=== PATIENT | male | born 1970 | race Two or more races ===

== ENCOUNTER 2019-10-14 12:34 | Inpatient (IN) | payer OTHER ==
[~2019-10-14] VITALS: Ht 172.7 cm; Wt 106.6 kg
--- NOTE | 2019-10-14 12:35 | NUR ---
[facility] PR[facility]-LIKE CHEST PAIN RADIATING TO SHOULDER AND LEG THAT STARTED THIS MORNING. TO ER BED 10. HOOKED TO MATERIALS TECHNICIAN, CHANGED TO HOSP GOWN, WARM BLANKET PROVIDED. DR HERRERA AT BEDSIDE
[2019-10-14 12:51] LABS: BASOPHILS % (AUTO) 0.4 % (0.0-2.0); EOSINOPHILS % (AUTO) 0.7 % (0.0-6.0); HEMATOCRIT 40 % (39-51); HEMOGLOBIN 13.3 g/dL (13.5-17.5); LYMPHOCYTES # (AUTO) 2.4 /CMM (0.8-4.8); LYMPHOCYTES % (AUTO) 26.7 % (20.0-44.0); MEAN CORPUSCULAR HGB CONC 34 g/dl (31.0-36.0); MEAN CORPUSCULAR VOLUME 89 fL (80-96); MONOCYTES # (AUTO) 0.6 /CMM (0.1-1.30); MONOCYTES % (AUTO) 6.3 % (2.0-12.0); NEUTROPHILS # (AUTO) 5.9 /CMM (1.8-8.9); NEUTROPHILS % (AUTO) 65.9 % (43.0-81.0); PLATELET COUNT (AUTO) 361 /CMM (150-450); RED BLOOD CELL COUNT(AUTO) 4.42 MIL/uL (4.5-6.0)
[2019-10-14 12:58] LABS: CALCIUM, SERUM 9.1 mg/dL (8.5-10.1); CREATININE 1.1 mg/dL (0.6-1.3); POTASSIUM 4.3 mmol/L (3.5-5.1)
[2019-10-14] MEDS ORDERED: IV NS 0.9% 500 ML BAG IV ONE (13:30)
--- NOTE | 2019-10-14 14:12 | NUR ---
PATIENT IN BED AWAKE, HOOKED TO MONITOR, VSS. WILL CONTINUE TO MONITOR ACCORDINGLY.
[2019-10-14] MEDS ORDERED: ASPIRIN 81 MG TAB.CHEW PO ONE (15:30)
[2019-10-14] MEDS ORDERED: ASPIRIN 81 MG TAB.CHEW ONE (15:38)
--- NOTE | 2019-10-14 16:14 | NUR ---
RECEIVED ADMITTING ORDER THROUGH PHONE FROM DEIRDRE GARAY MD.
--- NOTE | 2019-10-14 16:15 | NUR ---
CALLED NURSING SUP FOR TELE BED.
--- NOTE | 2019-10-14 17:14 | NUR ---
NURSING SUP GAVE [phone].
--- NOTE | 2019-10-14 17:24 | NUR ---
report given to Berny BERNABE for janine.
[2019-10-14 17:35] VITALS: BP 136/84
--- NOTE | 2019-10-14 18:00 | NUR ---
RN ADMITTING NOTES ADMITTED A 49 YEARS OLD, M, TO UNIT VIA GURNEY ACCOMPANIED BY 2 ER STAFF. ABLE TO MAKE NEEDS KNOWN. A/O X3. NO SIGNS OF DISTRESS NOTED AT THIS TIME. ORIENTED TO ROOM, STAFF AND UNIT. BREATHING EVEN AND UNLABORED. ON ROOM AIR, V/S TAKEN, STABLE AND RECORDED. REFUSED SKIN ASSESSMENT AND PICTURES, PER PATIENT HE DOES NOT HAVE ANY WOUNDS. PATIENT IV ACCESS ON RAC #18, PATENT AND INTACT. SAFETY MEASURES INITIATED, BED PLACED IN LOWEST LOCKED POSITION WITH SIDE RAILS UP X2. CALL LIGHT PLACED WITHIN EASY REACH OF PATIENT. ALL ORDERS MADE AND CARRIED OUT. WILL ENDORSE TO TELECOM MANAGER NURSE FOR JOEL.
[2019-10-14] MEDS ORDERED: DEXTROSE 50%-WATER 50 ML DISP.SYRIN IV PRN (18:30)
[2019-10-14] MEDS: DIVALPROEX SODIUM 500 MG TABLET.DR PO SCH (18:55)
[2019-10-14] MEDS: ZIPRASIDONE 20 MG CAPSULE PO SCH (18:55)
[2019-10-14] MEDS ORDERED: TRAZODONE 50 MG TABLET PO PRN (19:00)
[2019-10-14] MEDS ORDERED: ACETAMINOPHEN 325 MG TABLET PO PRN (19:00)
--- NOTE | 2019-10-14 19:00 | NUR ---
RECEIVED PATIENT IN BED ALERT AND ORIENTATED X4. REQUESTING SANDWITCH AND WATER. CALL LIGHT REVIEWED WITH HIM SKIN WARM AND DRY
[2019-10-14 20:00] VITALS: BP 139/88
[2019-10-14 20:11] VITALS: BP 139/88
[2019-10-14] MEDS: BENZTROPINE MESYLATE (1 MG) 1 MG TABLET PO SCH (20:31)
[2019-10-14] MEDS: ATORVASTATIN 10 MG TABLET PO SCH (22:08)
[2019-10-14] MEDS: BLOOD SUGAR DIAGNOSTIC 1 EACH STRIP IN SCH (22:10)
[2019-10-14] MEDS: INSULIN REGULAR, HUMAN 100 UNIT/ML 3 ML VIAL SQ PRN (22:14)
[2019-10-14] MEDS: LORAZEPAM 1 MG TABLET PO PRN (22:57)
[2019-10-15] VITALS: BP 121/45
[2019-10-15 03:15] LABS: BASOPHILS # (AUTO) 0.3 /CMM (0.0-0.2); EOSINOPHILS % (AUTO) 2.1 % (0.0-6.0); HEMATOCRIT 40 % (39-51); HEMOGLOBIN 13.3 g/dL (13.5-17.5); LYMPHOCYTES # (AUTO) 1.9 /CMM (0.8-4.8); LYMPHOCYTES % (AUTO) 21.9 % (20.0-44.0); MEAN CORPUSCULAR HGB CONC 33 g/dl (31.0-36.0); MEAN CORPUSCULAR VOLUME 89 fL (80-96); MONOCYTES # (AUTO) 0.8 /CMM (0.1-1.30); NEUTROPHILS # (AUTO) 5.7 /CMM (1.8-8.9); PLATELET COUNT (AUTO) 358 /CMM (150-450); RED BLOOD CELL COUNT(AUTO) 4.52 MIL/uL (4.5-6.0); WHITE BLOOD COUNT (AUTO) 8.9 K/uL (4.3-11.0)
[2019-10-15 03:20] LABS: CALCIUM, SERUM 8.7 mg/dL (8.5-10.1); CREATININE 0.9 mg/dL (0.6-1.3); POTASSIUM 4.7 mmol/L (3.5-5.1)
[2019-10-15 04:00] VITALS: BP 125/51
--- NOTE | 2019-10-15 04:54 | NUR ---
ENDING NOTES: SLEPT THRU THE NIGHT. USED URINAL AND TWICE UP TO THE BATHROOM STEADY ON HIS LEGS. WITH AMBULATION TO THE BATHROOM NO NOTED SOB OR C/O PAIN. TROPS DONE Q6 HOURS 9PM 0.058 @3AM 0.058 . KEPT NPO AFTER MIDNIGHT TO BE EVAL IN THE AM ON THE MONITOR HE READS NSR
[2019-10-15] MEDS: BLOOD SUGAR DIAGNOSTIC 1 EACH STRIP IN SCH ×4 (05:29→21:27)
--- NOTE | 2019-10-15 07:35 | NUR ---
CORPORATE LEGAL ASSISTANT OPENING NOTES RECEIVED PT IN BED, AWAKE, A/O X3-4. PT TOLERATING RA, WITH NO ACUTE RESPIRATORY DISTRESS NOTED. ON TELEMONITORING SR HR 84. PT DENIES ANY PAIN OR DISCOMFORT AT THIS TIME. PIV TO RAC G18, FLUSHED WITH NS, INTACT AND OPERATIONAL. PT KEPT COMFORTABLE AT THIS TIME. CALL LIGHT KEPT WITHIN REACH. PT'S BED IN LOWEST, LOCKED POSITION WITH SRX3. HOB ELEVATED. WILL CONTINUE PLAN OF CARE.
--- NOTE | 2019-10-15 07:45 | NUR ---
MS RN NOTES PT SEEN AND EVALUATED BY PREMIUM REPRESENTATIVE/DR. FLORES. ORDER PLACED AND CARRIED OUT. WILL CONTINUE TO MONITOR.
[2019-10-15 08:00] VITALS: BP 115/89
[2019-10-15] MEDS: ZIPRASIDONE 20 MG CAPSULE PO SCH ×2 (08:39→16:48)
[2019-10-15] MEDS: BENZTROPINE MESYLATE (1 MG) 1 MG TABLET PO SCH ×2 (08:39→16:48)
[2019-10-15] MEDS: LISINOPRIL (5MG) 5 MG TABLET PO SCH (08:39)
[2019-10-15] MEDS: METFORMIN 500 MG TABLET PO SCH ×2 (08:40→16:48)
[2019-10-15] MEDS: ASPIRIN 81 MG TAB.CHEW PO SCH (08:40)
[2019-10-15] MEDS: DIVALPROEX SODIUM 500 MG TABLET.DR PO SCH ×2 (08:42→16:48)
--- NOTE | 2019-10-15 11:30 | NUR ---
MS RN NOTES PT PREFERS TO HAVE RAC G18 PIV REPLCED WITH A NEW ONE DUE TO LEAK. RN ASSESSED PIV RAC, FLUSHED WITH NS, INTACT AND OPERATIONAL. NEWLY INSERTED PIV TO LFA G20, FLUSHED WITH NS, INTACT AND OPERATIONAL. WILL CONTINUE TO MONITOR.
--- NOTE | 2019-10-15 11:30 | NUR ---
MS RN NOTES NO MED RECON DONE. PER PT, REVIEWED ALL INPATIENT MEDS WITH PT AND STATED THAT'S ALL HE TAKES. NOTIFIED PHARMACY.
--- NOTE | 2019-10-15 12:28 | NUR ---
MS RN NOTES PT PREFERS TO HAVE PIV LFA G20, REMOVED. CHARGE NURSE/PAULINE AWARE WELL AND AGREED.
[2019-10-15 16:00] VITALS: BP 118/70
--- NOTE | 2019-10-15 18:34 | NUR ---
MS RN CLOSING NOTES PT REMAINS IN BED, AWAKE, A/O X3-4. PT TOLERATING RA, WITH NO ACUTE RESPIRATORY DISTRESS NOTED. PT DENIES ANY PAIN OR DISCOMFORT AT THIS TIME. NO IV ACCESS NOTED, PER PT'S REQUEST. MADE AWARE. PT KEPT COMFORTABLE AT THIS TIME. ALL NEEDS AND CARE ATTENDED AND PROVIDED. CALL LIGHT KEPT WITHIN REACH. PT'S BED IN LOWEST, LOCKED POSITION WITH SRX3. HOB ELEVATED. WILL ENDORSE TO INCOMING NIGHT NURSE FOR JOEL.
--- NOTE | 2019-10-15 19:30 | NUR ---
MS RN OPENING NOTES RECEIVED PATIENT FROM MORNING SHIFT, ALERT AND ORIENTED X 3. VERBALLY RESPONSIVE AND ABLE TO FOLLOW DIRECTIONS. BREATHING REGULAR AND UNLABORED ON ROOM AIR. NO IV ACCESS, REFUSED IV REINSERTION. RISK AND BENEFITS EXPLAINED. DENIES SUICIDAL/HOMICIDAL IDEATION. COMPLAINED OF LEFT SHOULDER PAIN, WHEN ASKED HOW PAINFUL IT IS HE REPLIED "I DON'T KNOW". NON-PHARMACOLOGICAL INTERVENTIONS PROVIDED. BED LOW AND LOCKED ON SEMI FOWLERS POSITION. CALL LIGHT IN REACH. WILL CONTINUE TO MONITOR.
[2019-10-15 20:00] VITALS: BP 138/80
[2019-10-15 20:28] VITALS: BP 138/80
[2019-10-15] MEDS: ATORVASTATIN 10 MG TABLET PO SCH (21:27)
--- NOTE | 2019-10-15 22:00 | NUR ---
MS RN NOTES BS 103mg/dl, NO INSULIN COVERAGE NEEDED. SNACKS PROVIDED. WILL CONTINUE TO MONITOR.
[2019-10-15] MEDS: LORAZEPAM 1 MG TABLET PO PRN (22:40)
--- NOTE | 2019-10-15 22:40 | NUR ---
MS RN NOTES ANXIETY VERBALIZED, ATIVAN 1MG GIVEN BY MOUTH. NON-PHARMACOLOGICAL INTERVENTIONS PROVIDED. WILL CONTINUE TO MONITOR.
--- NOTE | 2019-10-16 06:15 | NUR ---
MS RN CLOSING NOTES PATIENT IN BED ALERT AND ORIENTED X 3. AFEBRILE WITH NO S/S OF DISTRESS OBSERVED. NO IV ACCESS, REFUSED IV REINSERTION. RISK AND BENEFITS EXPLAINED 3X. NO COMPLAINTS OF PAIN/DISCOMFORT REPORTED AT THIS TIME. BED LOW AND LOCKED ON SEMI FOWLERS POSITION. CALL LIGHT IN REACH. WILL ENDORSE TO MORNING SHIFT FOR JOEL.
[2019-10-16] MEDS: INSULIN REGULAR, HUMAN 100 UNIT/ML 3 ML VIAL SQ PRN (06:37)
[2019-10-16] MEDS: BLOOD SUGAR DIAGNOSTIC 1 EACH STRIP IN SCH ×2 (06:37→11:39)
[2019-10-16 08:00] VITALS: BP 142/100
--- NOTE | 2019-10-16 08:00 | NUR ---
m/s adjunct communications faculty member: initial assessment received pt in bed awake, a/ox2-3. pt is selective in answering questions. reality orientation provided prn. instructed to call for assistance. will continue to monitor.
[2019-10-16] MEDS: METFORMIN 500 MG TABLET PO SCH ×2 (08:36→16:30)
[2019-10-16] MEDS: ZIPRASIDONE 20 MG CAPSULE PO SCH ×2 (08:36→16:30)
[2019-10-16] MEDS: BENZTROPINE MESYLATE (1 MG) 1 MG TABLET PO SCH ×2 (08:36→16:30)
[2019-10-16] MEDS: DIVALPROEX SODIUM 500 MG TABLET.DR PO SCH ×2 (08:37→16:30)
[2019-10-16] MEDS: ASPIRIN 81 MG TAB.CHEW PO SCH (08:37)
[2019-10-16] MEDS: LISINOPRIL (5MG) 5 MG TABLET PO SCH (08:37)
--- NOTE | 2019-10-16 10:00 | NUR ---
m/s recreation therapy aide: notes up and about in unit. staff following closely. no c/o pain or any discomfort. will continue to monitor.
--- NOTE | 2019-10-16 11:00 | NUR ---
m/s videographer: notes pt acting out, going to elevator. instructed pt to go back to his room, pt still insisting of leaving. awaiting for dr. powell to see pt. no further workup from user support analyst. security called and assisted pt back to his room.
--- NOTE | 2019-10-16 11:30 | NUR ---
m/s video game maker: notes pt came out once more and wants to leave. dr. powell here and aware. security once more assisted pt back to his room. will continue to monitor.
[2019-10-16] MEDS ORDERED: ZIPR20CA2 PO (11:42)
[2019-10-16] MEDS ORDERED: DIVA500T2 PO (11:42)
[2019-10-16] MEDS ORDERED: BENZ1TAB7 PO (11:42)
[2019-10-16] MEDS ORDERED: METF-440 PO (11:42)
[2019-10-16] MEDS ORDERED: ATOR10TA PO (11:42)
[2019-10-16] MEDS ORDERED: ASPI-1169 PO (11:42)
[2019-10-16] MEDS ORDERED: TRAZ-252 PO (11:42)
[2019-10-16] MEDS ORDERED: ACET325T53 PO (11:42)
[2019-10-16] MEDS ORDERED: LISI-607 PO (11:42)
--- NOTE | 2019-10-16 11:50 | NUR ---
m/s municipal clerk: notes received order from dr. powell to discharge pt back to [facility] (end) making arrangement. pt made aware.
--- NOTE | 2019-10-16 12:54 | NUR ---
Metal Fence Erector, Otilia, and Charge Nurse on 3rd floor, [place], asked the SW to transfer the pt to [facility]. KENTRELL contacted Jacobo ([phone]) from [facility] and faxed a clinical to the fax number: [phone]. He stated that the pt will be placed in Rm 214A and will be followed by Dr. Marin and Dr. Leyva.
--- NOTE | 2019-10-16 13:30 | NUR ---
m/s head field hockey coach: notes pt accepted at [facility]. pt made aware.
--- NOTE | 2019-10-16 14:00 | NUR ---
m/s commercial front load operator: notes called for report, spoke to jg ([facility]) and informed me that he hasn't been accepted here and have sw call out intake. cristian (chiki.) made aware and will f/u.
--- NOTE | 2019-10-16 14:30 | NUR ---
m/s leather seasoner: notes krystle (s.w) called me and informed me that pt has been accepted, but pt needs to go to e.r. there first prior to going to floor. ian (anuradha) making arrangement for transportation.
--- NOTE | 2019-10-16 15:00 | NUR ---
m/s marketing communications coordinator: notes [facility] notified, spoke to alessio (rn) and report given for continuity of care. eta in 30mins. pt made aware.
--- NOTE | 2019-10-16 15:16 | NUR ---
Pt will be discharged to [facility]. Pt will be admitted through their ER so that they can conduct a COVID test for the pt. SW called the pts sister, Genie ([phone]), and left a message stating that the pt was transferred there on a voluntary hold.
--- NOTE | 2019-10-16 15:30 | NUR ---
m/s dowel pin worker: notes pt unable to sign discharge papers due to psychosis or cognitive impairment. 2 licensed staff signed and copy to be provided to [facility].
[2019-10-16 16:00] VITALS: BP 145/87
--- NOTE | 2019-10-16 16:02 | NUR ---
m/s tool crib manager: notes ambulance called and informed that they are running an hour late, pt made aware.
--- NOTE | 2019-10-16 17:19 | NUR ---
m/s senior quality control inspector: notes pt is getting irritated, f/u made to ian re: ambulance pick pack worker. informed pt that cm is following up and will call them.
--- NOTE | 2019-10-16 17:30 | NUR ---
m/s end touching machine operator: notes [facility] ambulance here and report given to one of the crew.
--- NOTE | 2019-10-16 17:35 | NUR ---
m/s motor vehicle representative: discharged discharge to [facility] via ambulance accompanied by 2 crew in stable condition.
== END 2019-10-16 17:35 | DRG 880 ==
LOC: ER 12:41 → TELE 17:19 → MED 10-15 09:59
PROVIDERS: ADMIT Internal Medicine Nephrology; ATTEND Internal Medicine Nephrology
DX: F41.9 Anxiety disorder, unspecified (principal); E11.9 Type 2 diabetes mellitus without complications; F32.9 Major depressive disorder, single episode, unspecified; F20.9 Schizophrenia, unspecified
CPT/HCPCS: 36415; 71045-TC; 80048-TC; 80061-TC; 82962-TC; 84484-TC; 85025-TC; 87081-TC; 93307-TC; G0378; J1815; J7040

== ENCOUNTER 2019-11-09 17:42 | Inpatient (IN) | payer OTHER ==
[~2019-11-09] VITALS: Ht 172.7 cm; Wt 104.8 kg
[~2019-11-09 17:42] MED LIST: ACET325T53 PO; ASPI-1169 PO; ATOR10TA PO; BENZ1TAB7 PO; DIVA500T2 PO; LISI-607 PO; METF-440 PO; TRAZ-252 PO; ZIPR20CA2 PO
[2019-11-09] MEDS ORDERED: IV NS 0.9% 1,000 ML BAG IV ONE ×2 (18:00)
--- NOTE | 2019-11-09 18:00 | NUR ---
REBEKAH RA 860 "recent dc from [facility] Was being admitted to [facility] c/o dizzy." pt states "they were taking so long to process my papers" patient a/ox4, breathing even and unlabored, c/o chest pain, no distress noted, attached to the financial services technician.
--- NOTE | 2019-11-09 18:01 | NUR ---
PT ALSO STATED THAT HE IS HAVING AN ABDOMINAL PAIN. DENIES NAUSE AND VOMIMITING.
[2019-11-09 18:21] LABS: BASOPHILS # (AUTO) 0.1 /CMM (0.0-0.2); BASOPHILS % (AUTO) 1.1 % (0.0-2.0); EOSINOPHILS % (AUTO) 0.6 % (0.0-6.0); HEMATOCRIT 37 % (39-51); HEMOGLOBIN 12.7 g/dL (13.5-17.5); LYMPHOCYTES # (AUTO) 2.8 /CMM (0.8-4.8); LYMPHOCYTES % (AUTO) 30.6 % (20.0-44.0); MEAN CORPUSCULAR HGB CONC 34 g/dl (31.0-36.0); MEAN CORPUSCULAR VOLUME 88 fL (80-96); MONOCYTES # (AUTO) 0.7 /CMM (0.1-1.30); MONOCYTES % (AUTO) 8.1 % (2.0-12.0); NEUTROPHILS # (AUTO) 5.5 /CMM (1.8-8.9); NEUTROPHILS % (AUTO) 59.6 % (43.0-81.0); PLATELET COUNT (AUTO) 352 /CMM (150-450); RED BLOOD CELL COUNT(AUTO) 4.26 MIL/uL (4.5-6.0); WHITE BLOOD COUNT (AUTO) 9.3 K/uL (4.3-11.0)
[2019-11-09 18:31] LABS: CALCIUM, SERUM 8.6 mg/dL (8.5-10.1); CREATININE 0.8 mg/dL (0.6-1.3); POTASSIUM 3.9 mmol/L (3.5-5.1)
[2019-11-09 18:36] LABS: ALBUMIN 3.4 g/dL (3.4-5.0); BILIRUBIN,DIRECT 0.1 mg/dL (0.0-0.2); BILIRUBIN,TOTAL 0.5 mg/dL (0.2-1.0); TOTAL PROTEIN, SERUM 6.9 g/dL (6.4-8.2)
[2019-11-09] MEDS ORDERED: ASPIRIN 81 MG TAB.CHEW PO ONE (19:00)
[2019-11-09] MEDS ORDERED: ASPIRIN 81 MG TAB.CHEW ONE (19:01)
--- NOTE | 2019-11-09 19:20 | NUR ---
PT VERBALIZED THAT HE IS HAVING A SHARP THROBBING L SIDED CHEST PAIN NON RADIDATING. MD MADE AWARE
[2019-11-09] MEDS ORDERED: MAGNESIUM HYDROXIDE 30 ML UDC PO PRN (20:30)
[2019-11-09] MEDS ORDERED: MAG HYDROX/AL HYDROX/SIMETH 30 ML UDC PO PRN (20:30)
[2019-11-09] MEDS ORDERED: NITROGLYCERIN 0.4 MG/TAB BOTTLE SL PRN (20:30)
[2019-11-09] MEDS ORDERED: HYDROCODONE/APAP 5/325MG 1 EACH TABLET PO PRN (20:30)
[2019-11-09] MEDS ORDERED: MORPHINE SULFATE INJ 2 MG/ML DISP.SYRIN IV PRN (20:30)
[2019-11-09] MEDS ORDERED: TEMAZEPAM 15 MG CAPSULE PO PRN (20:30)
[2019-11-09] MEDS ORDERED: TRAZODONE 50 MG TABLET PO PRN (20:30)
--- NOTE | 2019-11-09 20:33 | NUR ---
REPORT GIVEN TO FLORECITA TENA FOR JOEL.
[2019-11-09 21:15] VITALS: BP 125/81
--- NOTE | 2019-11-09 21:15 | NUR ---
INDUSTRIAL RELATIONS WORKER NOTES PATIENT ARRIVED ON FLOOR AT 2114. PT ABLE TO AMBULATE TO BED. ALERT AND ORIENTED X4. BREATHING EVEN AND UNLABORED ON ROOM AIR. SHOWS NO SIGNS OF ACUTE RESPIRATORY DISTRESS NO ACUTE PAIN. IV ON LAC 20G RUNNING NS AT 75ML/HR. SHOWS NO SIGNS OF INFILTRATION, NO REDNESS. TELE MONITOR ON SR 80HR. BELONGINGS CHECKLIST COMPLETE AND SKIN ASSESSMENT DONE. ORIENTED TO ROOM AND UNIT. SAFETY PRECAUTIONS IN PLACE. BED IN LOWEST POSITION, LOCKED, AND CALL LIGHT KEPT WITHIN REACH. WILL CONTINUE TO MONITOR.
--- NOTE | 2019-11-09 21:18 | NUR ---
PT TRANSPORTED TO UNIT ON [place] WITH EMT AND RN AT BEDSIDE W/ ACLS PROTOCOL. NAD NOTED DURING TRANSPORT. PT AMBULATED FROM GURNEY TO BED W/ ASSIST ON STEADY GAIT.
[2019-11-09 21:30] VITALS: BP 125/81
[2019-11-09] MEDS: ACETAMINOPHEN 325 MG TABLET PO PRN (21:50)
[2019-11-09] MEDS: ATORVASTATIN 10 MG TABLET PO SCH (21:50)
--- NOTE | 2019-11-09 21:50 | NUR ---
UX DEVELOPER NOTES PATIENT COMPLAINING OF PAIN. PT REQUESTED TYLENOL. GIVEN TYLENOL PRN AT 2150
[2019-11-09] MEDS: BENZTROPINE MESYLATE (1 MG) 1 MG TABLET PO SCH (21:54)
[2019-11-09] MEDS: DIVALPROEX SODIUM 500 MG TABLET.DR PO SCH (21:54)
[2019-11-09] MEDS: ZIPRASIDONE 20 MG CAPSULE PO SCH (21:54)
--- NOTE | 2019-11-09 22:09 | NUR ---
VOCATIONAL TRAINING INSTRUCTOR NOTES PATIENT COMPLAINING OF CHEST PAIN 09/20. GIVEN PRN 1 TAB NITRO 2209. WILL CONTINUE TO MONITOR.
[2019-11-09] MEDS: IV NS 0.9% 1,000 ML IV PRN (22:50)
[2019-11-09] MEDS ORDERED: LORAZEPAM INJ 2 MG/ML VIAL IV PRN (23:00)
--- NOTE | 2019-11-09 23:20 | NUR ---
PAPER AND PULP MILL WORKER NOTES PATIENT REQUESTED ATIVAN FOR ANXIETY. GIVEN ONCE TIME DOSE OF PRN ATIVAN AT 2320. WILL CONTINUE TO MONITOR.
[2019-11-10 04:00] VITALS: BP 103/64
--- NOTE | 2019-11-10 06:40 | NUR ---
TAMPING MACHINE OPERATOR NOTES PATIENT ASLEEP, ALERT AND ORIENTED X4. BREATHING EVEN AND UNLABORED ON ROOM AIR. SHOWS NO SIGNS OF ACUTE RESPIRATORY DISTRESS NO ACUTE PAIN. IV ON LAC 20G RUNNING NS AT 75ML/HR. SHOWS NO SIGNS OF INFILTRATION, NO REDNESS. TELE MONITOR ON SR 80HR. ALL DUE MEDIATIONS GIVEN. SAFETY PRECAUTIONS IN PLACE. BED IN LOWEST POSITION, LOCKED, AND CALL LIGHT KEPT WITHIN REACH. WILL ENDORSE TO ONCOMING NURSE.
[2019-11-10 07:14] LABS: BASOPHILS % (AUTO) 0.4 % (0.0-2.0); EOSINOPHILS % (AUTO) 1.2 % (0.0-6.0); HEMATOCRIT 39 % (39-51); HEMOGLOBIN 13.2 g/dL (13.5-17.5); LYMPHOCYTES # (AUTO) 2.5 /CMM (0.8-4.8); LYMPHOCYTES % (AUTO) 41.2 % (20.0-44.0); MEAN CORPUSCULAR HGB CONC 34 g/dl (31.0-36.0); MEAN CORPUSCULAR VOLUME 89 fL (80-96); MONOCYTES # (AUTO) 0.5 /CMM (0.1-1.30); NEUTROPHILS # (AUTO) 2.9 /CMM (1.8-8.9); NEUTROPHILS % (AUTO) 48.2 % (43.0-81.0); PLATELET COUNT (AUTO) 349 /CMM (150-450); RED BLOOD CELL COUNT(AUTO) 4.41 MIL/uL (4.5-6.0); WHITE BLOOD COUNT (AUTO) 6.1 K/uL (4.3-11.0)
[2019-11-10 07:30] LABS: CALCIUM, SERUM 8.2 mg/dL (8.5-10.1); CREATININE 0.7 mg/dL (0.6-1.3); PHOSPHORUS 4.6 mg/dL (2.5-4.9); POTASSIUM 4.6 mmol/L (3.5-5.1)
--- NOTE | 2019-11-10 07:42 | NUR ---
MICROFICHE CAMERA OPERATOR OPENING NOTE PATIENT IN BED RESTING COMFORTABLY. PATIENT IN NO ACUTE DISTRESS. NO SOB NOTED. PATIENT BREATHING IS EVEN AND UNLABORED. PATIENT ON CARDIAC MONITORING READING SINUS RHYTHM HR 65. SAFETY PRECAUTIONS IN PLACE. PATIENT BED IS LOCKED AND IN LOWEST POSITION. CALL LIGHT WITHIN REACH. WILL CONTINUE TO MONITOR.
[2019-11-10 08:00] VITALS: BP 107/55
[2019-11-10] MEDS: LISINOPRIL (5MG) 5 MG TABLET PO SCH (09:00)
[2019-11-10] MEDS ORDERED: DIVALPROEX SODIUM 500 MG TABLET.DR PO SCH (09:00)
[2019-11-10] MEDS ORDERED: BENZTROPINE MESYLATE (1 MG) 1 MG TABLET PO SCH (09:00)
[2019-11-10] MEDS ORDERED: ZIPRASIDONE 20 MG CAPSULE PO SCH (09:00)
[2019-11-10] MEDS ORDERED: ASPIRIN 325 MG TABLET PO SCH (09:00)
[2019-11-10] MEDS: METFORMIN 500 MG TABLET PO SCH ×2 (09:05→16:52)
[2019-11-10] MEDS: BENZTROPINE MESYLATE (1 MG) 1 MG TABLET PO SCH ×2 (09:06→16:55)
[2019-11-10] MEDS: DIVALPROEX SODIUM 500 MG TABLET.DR PO SCH ×2 (09:06→16:55)
[2019-11-10] MEDS: ZIPRASIDONE 20 MG CAPSULE PO SCH ×2 (09:06→16:55)
[2019-11-10] MEDS: METOPROLOL TARTRATE 50 MG TABLET PO SCH ×2 (09:47→21:07)
[2019-11-10] MEDS: ONDANSETRON HCL/PF 4 MG/2 ML VIAL IVP PRN (10:20)
--- NOTE | 2019-11-10 12:45 | NUR ---
MS RN NOTE SPOKE WITH DR. LILLY AND PATIENTS HISTORY OF DIABETES. PER MD ORDER FOR MILD SLIDING SCALE.
[2019-11-10] MEDS ORDERED: INSULIN REGULAR, HUMAN 100 UNIT/ML 3 ML VIAL SQ PRN (13:00)
[2019-11-10] MEDS ORDERED: DEXTROSE 50%-WATER 50 ML DISP.SYRIN IV PRN (13:00)
[2019-11-10] MEDS: MIRTAZAPINE 15 MG TABLET PO SCH (13:43)
[2019-11-10] MEDS ORDERED: METOPROLOL TARTRATE INJ 5 MG/5 ML AMPUL ONE ×2 (14:28→14:34)
[2019-11-10] MEDS ORDERED: IOHEXOL-350 100 ML VIAL IV ONE ×2 (14:34→14:48)
[2019-11-10] MEDS ORDERED: CT SWABBABLE VALVE TRANS SET 1 EA INFUS.SET MC ONE (14:48)
[2019-11-10] MEDS ORDERED: IV NS 0.9% 250 ML IV ONE (14:48)
[2019-11-10] MEDS ORDERED: NITROGLYCERIN 0.4 MG/TAB BOTTLE SL PRN (15:00)
[2019-11-10] MEDS ORDERED: METOPROLOL TARTRATE INJ 5 MG/5 ML AMPUL IVP ONE (15:00)
[2019-11-10] MEDS ORDERED: IV NS 0.9% 500 ML IV ONE (15:00)
--- NOTE | 2019-11-10 15:30 | NUR ---
MS RN NOTE PATIENT BACK FROM [facility]. PATIENT IN NO ACUTE DISTRESS. HOLD METFORMIN FOR 48 HOURS DUE TO [facility] PERFORMED.
[2019-11-10 16:00] VITALS: BP 124/74
--- NOTE | 2019-11-10 16:52 | NUR ---
MS RN NOTE HELD 1700 DOSE METFORMIN DUE TO [facility] PERFORMED TODAY.
[2019-11-10] MEDS: BLOOD SUGAR DIAGNOSTIC 1 EACH STRIP IN SCH ×2 (16:55→21:07)
--- NOTE | 2019-11-10 16:57 | NUR ---
MS RN NOTE PATIENT BLOOD SUGAR IS 125. NO INSULIN NEEDED PER PROTOCOL.
--- NOTE | 2019-11-10 18:44 | NUR ---
MS RN CLOSING NOTE PATIENT IN BED RESTING COMFORTABLY. PATIENT IN NO ACUTE DISTRESS. NO SOB NOTED. PATIENT BREATHING IS EVEN AND UNLABORED. PATIENT STATES NO PAIN AT THIS TIME. NEEDS AND CONCERNS ADDRESSED. PATIENT KEPT CLEAN, DRY AND COMFORTABLE THROUGHOUT SHIFT. SAFETY PRECAUTIONS IN PLACE. PATIENT BED IS LOCKED AND IN LOWEST POSITION. CALL LIGHT WITHIN REACH. WILL ENDORSE CARE TO PM SHIFT FOR JOEL.
[2019-11-10 20:00] VITALS: BP 110/77
[2019-11-10] MEDS: ATORVASTATIN 10 MG TABLET PO SCH (21:07)
[2019-11-10] MEDS ORDERED: MIRTAZAPINE 15 MG TABLET PO SCH (22:00)
[2019-11-11] MEDS: BLOOD SUGAR DIAGNOSTIC 1 EACH STRIP IN SCH ×4 (06:36→21:20)
[2019-11-11 07:26] LABS: BASOPHILS # (AUTO) 0.1 /CMM (0.0-0.2); BASOPHILS % (AUTO) 0.8 % (0.0-2.0); EOSINOPHILS % (AUTO) 0.5 % (0.0-6.0); HEMATOCRIT 40 % (39-51); HEMOGLOBIN 13.2 g/dL (13.5-17.5); LYMPHOCYTES # (AUTO) 2.4 /CMM (0.8-4.8); LYMPHOCYTES % (AUTO) 31.2 % (20.0-44.0); MEAN CORPUSCULAR HGB CONC 33 g/dl (31.0-36.0); MEAN CORPUSCULAR VOLUME 90 fL (80-96); MONOCYTES # (AUTO) 0.7 /CMM (0.1-1.30); MONOCYTES % (AUTO) 9.7 % (2.0-12.0); NEUTROPHILS # (AUTO) 4.4 /CMM (1.8-8.9); NEUTROPHILS % (AUTO) 57.8 % (43.0-81.0); PLATELET COUNT (AUTO) 164 /CMM (150-450); WHITE BLOOD COUNT (AUTO) 7.6 K/uL (4.3-11.0)
--- NOTE | 2019-11-11 07:39 | NUR ---
MS RN OPENING NOTE PATIENT IN BED RESTING COMFORTABLY. PATIENT IN NO ACUTE DISTRESS. NO SOB NOTED. PATIENT BREATHING IS EVEN AND UNLABORED. SAFETY PRECAUTIONS IN PLACE. PATIENT BED IS LOCKED AND IN LOWEST POSITION. CALL LIGHT WITHIN REACH. WILL CONTINUE TO MONITOR.
[2019-11-11 07:44] LABS: CALCIUM, SERUM 8.5 mg/dL (8.5-10.1); CREATININE 0.8 mg/dL (0.6-1.3); MAGNESIUM 2.2 mg/dL (1.8-2.4); PHOSPHORUS 4.3 mg/dL (2.5-4.9); POTASSIUM 4.9 mmol/L (3.5-5.1)
[2019-11-11] MEDS: ACETAMINOPHEN 325 MG TABLET PO PRN ×2 (07:53→17:14)
--- NOTE | 2019-11-11 07:57 | NUR ---
MS RN NOTE PATIENT STATED TOOTHACHE PAIN 5/10. PATIENT REQUESTED TYLENOL. TYLENOL PRN ORDERED GIVEN.
[2019-11-11 08:00] VITALS: BP 133/85
[2019-11-11] MEDS: ONDANSETRON HCL/PF 4 MG/2 ML VIAL IVP PRN (08:34)
[2019-11-11] MEDS: BENZTROPINE MESYLATE (1 MG) 1 MG TABLET PO SCH ×2 (08:34→17:14)
[2019-11-11] MEDS: DIVALPROEX SODIUM 500 MG TABLET.DR PO SCH ×2 (08:34→17:14)
[2019-11-11] MEDS: ZIPRASIDONE 20 MG CAPSULE PO SCH ×2 (08:34→17:14)
[2019-11-11] MEDS: LISINOPRIL (5MG) 5 MG TABLET PO SCH (08:35)
[2019-11-11] MEDS: METFORMIN 500 MG TABLET PO SCH ×2 (08:35→17:00)
--- NOTE | 2019-11-11 08:36 | NUR ---
MS RN NOTE HELD METFORMIN DUE TO [facility] PERFORMED YESTERDAY.
--- NOTE | 2019-11-11 11:23 | NUR ---
MS RN NOTE PATIENT BLOOD SUGAR IS 79. NO INSULIN COVERAGE NEEDED PER PROTOCOL.
[2019-11-11] MEDS: IV NS 0.9% 1,000 ML IV PRN (14:34)
[2019-11-11 16:00] VITALS: BP 137/81
--- NOTE | 2019-11-11 16:53 | NUR ---
MS RN NOTE PATIENT BLOOD SUGAR IS 91. NO INSULIN COVERAGE GIVEN PER PROTOCOL.
--- NOTE | 2019-11-11 17:12 | NUR ---
MS RN NOTE HELD METFORMIN DUE TO [facility] PERFORMED YESTERDAY.
--- NOTE | 2019-11-11 17:20 | NUR ---
MS RN NOTE PATIENT STATED TOOTHACHE PAIN 5/10. PATIENT REQUESTED TYLENOL. TYLENOL PRN ORDERED GIVEN.
--- NOTE | 2019-11-11 18:34 | NUR ---
MS RN CLOSING NOTE PATIENT IN BED RESTING COMFORTABLY. PATIENT IN NO ACUTE DISTRESS. NO SOB NOTED. PATIENT BREATHING IS EVEN AND UNLABORED. PATIENT STATES NO PAIN AT THIS TIME. NEEDS AND CONCERNS ADDRESSED. PATIENT KEPT CLEAN, DRY AND COMFORTABLE THROUGHOUT SHIFT. DC ORDER IS PLACED, BUT PENDING PLACEMENT ACCEPTANCE TO PSYCHIATRIC FACILITY. MD AWARE AND CHARGE NURSE BRAYAN MADE AWARE. SAFETY PRECAUTIONS IN PLACE. PATIENT BED IS LOCKED AND IN LOWEST POSITION. CALL LIGHT WITHIN REACH. WILL ENDORSE CARE TO PM SHIFT FOR JOEL.
--- NOTE | 2019-11-11 19:30 | NUR ---
MS RN OPENING NOTE RECEIVED PATIENT IN BED. A/OX4, TOLERATING ROOM AIR. RESPIRATIONS ARE EVEN AND UNLABORED. NO S/S SOB NOTED. NO C/O PAIN AT THIS TIME. IN NO APPARENT DISTRESS. IV ACCESS IN LAC#20 RUNNING NS@75ML/HR. BED IS LOW AND LOCKED, HOB ELEVATED IN SEMI FOWLERS, SIDE RIALS UP X2. CALL LIGHT WITHIN REACH,.W ILL CONTINUE TO MONITOR.
[2019-11-11 20:00] VITALS: BP 117/71
[2019-11-11] MEDS: MIRTAZAPINE 15 MG TABLET PO SCH (21:19)
[2019-11-12] MEDS: IV NS 0.9% 1,000 ML IV PRN (06:23)
[2019-11-12] MEDS: BLOOD SUGAR DIAGNOSTIC 1 EACH STRIP IN SCH ×2 (06:23→11:55)
--- NOTE | 2019-11-12 06:55 | NUR ---
MS RN CLOSING NOTE PATIENT IN BED. A/OX4. REMAINS TOLERATING ROOM AIR. RESPIRATIONS ARE EVEN AND UNLABORED. NO SOB NOTED. NO C/O PAIN T/O SHIFT. NO DISTRESS. IV ACCESS RIGHT WRIST #20 RUNNING NS@75ML/HR. BED REMAINS LOW AND LOCKED, HOB FLAT, SIDE RIALS UP X2. CALL LIGHT WITHIN REACH WILL ENDORSE TO NEXT SHIFT
--- NOTE | 2019-11-12 07:26 | NUR ---
MS/RN OPENING NOTES RECEIVED PATIENT IN BED COMFORTABLY. A/OX4. PATIENT REMAINS TOLERATING ROOM AIR. RESPIRATIONS ARE EVEN AND UNLABORED. NO SOB NOTED. NO C/O PAIN T/O SHIFT. NO DISTRESS. IV ACCESS RIGHT WRIST #20 RUNNING NS@75ML/HR. BED REMAINS LOW AND LOCKED, HOB FLAT, SIDE RIALS UP X2. CALL LIGHT WITHIN REACH. WILL CONTINUE TO MONITOR.
[2019-11-12 08:00] VITALS: BP 140/80
[2019-11-12] MEDS: ZIPRASIDONE 20 MG CAPSULE PO SCH (08:10)
[2019-11-12] MEDS: ACETAMINOPHEN 325 MG TABLET PO PRN ×2 (08:10→13:00)
[2019-11-12] MEDS: BENZTROPINE MESYLATE (1 MG) 1 MG TABLET PO SCH (08:10)
[2019-11-12 08:11] VITALS: BP 140/89
[2019-11-12] MEDS: LISINOPRIL (5MG) 5 MG TABLET PO SCH (08:11)
[2019-11-12] MEDS: DIVALPROEX SODIUM 500 MG TABLET.DR PO SCH (08:11)
[2019-11-12] MEDS: METFORMIN 500 MG TABLET PO SCH (08:11)
--- NOTE | 2019-11-12 08:15 | NUR ---
MS/RN NOTES PATIENT COMPLAINED OF PAIN AT THE RATE OF 4/10, ACETAMINOPHEN 650MG P.O WAS GIVEN. WILL CONTINUE TO MONITOR.
--- NOTE | 2019-11-12 09:02 | NUR ---
[facility] REFERRAL: SW received a call from Renee economic development coordinator at [facility] who requested SW fax clinical packet to fax: [phone]. Per Jacobo, flight operations coordinator pt has been accepted and has a bed for transfer on this present day.
--- NOTE | 2019-11-12 11:56 | NUR ---
MS/RN NOTES BS 115MG/DL 0 COVERAGE
--- NOTE | 2019-11-12 14:04 | NUR ---
KENTRELL met with pt and informed him he has been accepted to [facility] [address] [address] [place] [address], pt stated he was not ready to leave the hospital. KENTRELL informed him that he has been medically cleared by MD and transfer via ambulance will be arranged for this present day. Pt agreed. Addendum: 11/12/19 at 1426 by ROSANGELA PFEIFFER KENTRELL provided RN with contact number ([phone] ex: [phone]) for report.
--- NOTE | 2019-11-12 19:25 | NUR ---
MS/RN NOTES PATIENT IS ALERT AND ORIENTED X4. IN ROOM AIR AND SATURATION IS 98%. RESPIRATION REGULAR AND UNLABORED. PATIENT IN NO APPARENT RESPIRATORY DISTRESS NOTED. PATIENT DENIES PAIN AT THIS TIME. SEEN AND EXAMINED BY MD WITH ORDERS MADE AND CARRIED OUT. ALL DUE MEDICATION WAS GIVEN. PATIENT WAS GIVEN DISCHARGED INSTRUCTIONS AND PATIENT VERBALIZED UNDERSTANDING. GIVE TRANSFER REPORT TO DELICIA BERNABE AT [facility]. THE PATIENT LEFT THE HOSPITAL IN STABLE CONDITION [id number]. PATIENT AUTOMOBILE REPAIR SERVICE ESTIMATOR BY 2 EMT VIA AMBULANCE.
[2019-11-13] MEDS ORDERED: LISINOPRIL (5MG) 5 MG TABLET PO SCH (09:00)
== END 2019-11-12 15:50 | DRG 281 ==
LOC: ER 17:44 → TELE 20:53 → MED 11-10 09:40
PROVIDERS: ADMIT Nurse Practitioner Acute Care
DX: I21.4 Non-ST elevation (NSTEMI) myocardial infarction (principal); E22.2 Syndrome of inappropriate secretion of antidiuretic hormone; E11.9 Type 2 diabetes mellitus without complications; D64.9 Anemia, unspecified; E78.5 Hyperlipidemia, unspecified; F25.9 Schizoaffective disorder, unspecified; R63.1 Polydipsia; F32.9 Major depressive disorder, single episode, unspecified; I10 Essential (primary) hypertension; E66.9 Obesity, unspecified; Z59.0 Homelessness; Z68.35 Body mass index [BMI] 35.0-35.9, adult; E86.1 Hypovolemia; Z79.84 Long term (current) use of oral hypoglycemic drugs
CPT/HCPCS: 36415; 71045-TC; 75574; 80048-TC; 80061-TC; 80076-TC; 80305; 82962-TC; 83690-TC; 83735-TC; 84100-TC; 84484-TC; 85025-TC; 87081-TC; 97116-TC; 97530-TC; G0378; G0480; J1815; J2060; J2405; J3490; J7030; J7050; Q9967

== ENCOUNTER 2019-11-12 19:04 | Emergency (ER) | payer OTHER ==
[~2019-11-12] VITALS: Ht 162.6 cm; Wt 90.7 kg
--- NOTE | 2019-11-12 19:20 | NUR ---
PATIENT C/O CHEST PAIN 45MINUTES PRIOR TO ARRIVAL, C/O MIDSTERNAL CHEST PAIN WITH TINGLING SENSATION IN THE LEFT ARM. AAOX4. NO SOB. BREATHING EVENLY AND UNLABORED ON ROOM AIR. CONNECTED TO MONITOR.
--- NOTE | 2019-11-12 19:25 | NUR ---
BLOOD DRAWN AND SENT TO THE LAB.
--- NOTE | 2019-11-12 19:28 | NUR ---
XRAY AT BEDSIDE.
[2019-11-12 19:30] LABS: BASOPHILS % (AUTO) 0.6 % (0.0-2.0); EOSINOPHILS % (AUTO) 0.7 % (0.0-6.0); HEMATOCRIT 39 % (39-51); HEMOGLOBIN 13.1 g/dL (13.5-17.5); LYMPHOCYTES # (AUTO) 2.3 /CMM (0.8-4.8); LYMPHOCYTES % (AUTO) 31.6 % (20.0-44.0); MEAN CORPUSCULAR HGB CONC 34 g/dl (31.0-36.0); MEAN CORPUSCULAR VOLUME 90 fL (80-96); MONOCYTES # (AUTO) 0.5 /CMM (0.1-1.30); MONOCYTES % (AUTO) 6.8 % (2.0-12.0); NEUTROPHILS # (AUTO) 4.3 /CMM (1.8-8.9); NEUTROPHILS % (AUTO) 60.3 % (43.0-81.0); PLATELET COUNT (AUTO) 355 /CMM (150-450); RED BLOOD CELL COUNT(AUTO) 4.33 MIL/uL (4.5-6.0); WHITE BLOOD COUNT (AUTO) 7.2 K/uL (4.3-11.0)
[2019-11-12 19:40] LABS: CALCIUM, SERUM 8.6 mg/dL (8.5-10.1); POTASSIUM 4.1 mmol/L (3.5-5.1)
--- NOTE | 2019-11-12 19:43 | NUR ---
PATIENT AMBULATED WITH A STEADY GAIT TO THE RESTROOM.
--- NOTE | 2019-11-12 19:45 | NUR ---
URINE COLLECTED AND SENT TO THE LAB.
[2019-11-12 19:46] LABS: ALBUMIN 3.3 g/dL (3.4-5.0); BILIRUBIN,DIRECT 0.1 mg/dL (0.0-0.2); BILIRUBIN,TOTAL 0.4 mg/dL (0.2-1.0); TOTAL PROTEIN, SERUM 6.7 g/dL (6.4-8.2)
[2019-11-12 20:02] LABS: APPEARANCE,URINE Clear (CLEAR); BILIRUBIN,URINE Negative (NEGATIVE); BLOOD, URINE Negative Ery/uL (NEGATIVE); COLOR,URINE Yellow (YELLOW); KETONES,URINE Negative (NEGATIVE); LEUKOCYTE ESTERASE ,URINE Negative (NEGATIVE); NITRITE, URINE Negative (NEGATIVE); PROTEIN,URINE Negative (NEGATIVE); UGLUCOSE Negative (NEGATIVE); UROBILINOGEN,URINE 0.2 EU/dL (0.2)
[2019-11-12] MEDS ORDERED: PANTOPRAZOLE 40 MG VIAL IV ONE (20:30)
[2019-11-12] MEDS ORDERED: KETOROLAC TROMETHAMINE INJ 30 MG/ML VIAL IV ONE (20:30)
[2019-11-12] MEDS ORDERED: KETOROLAC TROMETHAMINE 15 MG/ML VIAL ONE (20:38)
[2019-11-12] MEDS ORDERED: PANTOPRAZOLE 40 MG VIAL ONE (20:38)
--- NOTE | 2019-11-12 22:35 | NUR ---
MESH CUTTER AT BEDSIDE FOR BLOOD DRAW
[2019-11-12] MEDS ORDERED: LORAZEPAM 1 MG TABLET ONE (23:54)
[2019-11-12] MEDS ORDERED: LEVETIRACETAM (250 MG) 250 MG TABLET PO ONE (23:55)
--- NOTE | 2019-11-13 00:08 | NUR ---
PT MEDICALLY CLEARED FOR DISCHARGE. CALLED [facility] SPOKE TO SANDEEP REGARDING PT MEDICALLY CLEARED. AWAITING CALL BACK.
--- NOTE | 2019-11-13 00:10 | NUR ---
GAVE REPORT TO MARCELINO BERNABE AT UNIT 2 [facility] FOR [facility]EL.
--- NOTE | 2019-11-13 00:37 | NUR ---
PT AMBULATED TO THE BATHROOM WITH A STEADY GAIT.
--- NOTE | 2019-11-13 00:43 | NUR ---
PT RETURNED FROM THE BATHHROM AND WAS RECONNECTED TO THE MONITOR.
--- NOTE | 2019-11-13 00:44 | NUR ---
PT REC'D CRACKERS, JUICE, PUDDING AND JELLO. PT IS TOLERATING PO WELL.
--- NOTE | 2019-11-13 01:07 | NUR ---
[facility] [phone]
--- NOTE | 2019-11-13 02:32 | NUR ---
NEW ETA 45 MIN
--- NOTE | 2019-11-13 03:40 | NUR ---
REPORT GIVEN TO TRANSPORT TEAM FOR JOEL. AND TRANSFERRING RESPONSIBILITIES.
[2019-11-13 04:23] VITALS: BP 123/78
== END 2019-11-13 04:24 | disposition home or self-care (01) ==
LOC: ER 19:05
DX: R07.89 Other chest pain (principal); D64.9 Anemia, unspecified; F20.9 Schizophrenia, unspecified; F32.9 Major depressive disorder, single episode, unspecified; F41.9 Anxiety disorder, unspecified; E78.5 Hyperlipidemia, unspecified; I10 Essential (primary) hypertension; E11.9 Type 2 diabetes mellitus without complications; R94.31 Abnormal electrocardiogram [ECG] [EKG]; Z59.0 Homelessness; Z79.899 Other long term (current) drug therapy
CPT/HCPCS: 36415; 71045; 80048; 80076; 81001; 83690; 84484 ×2; 85025; 85378; 93005 ×3; 96374; 96375; 99285; C9113; J1885; J7030; 81000-TC

== ENCOUNTER 2019-11-13 14:31 | Emergency (ER) | payer OTHER ==
[~2019-11-13] VITALS: Ht 167.6 cm; Wt 99.3 kg
[2019-11-13] MEDS ORDERED: ONDANSETRON HCL/PF 4 MG/2 ML VIAL IVP ONE (15:00)
[2019-11-13] MEDS ORDERED: ONDANSETRON HCL/PF 4 MG/2 ML VIAL ONE (15:06)
--- NOTE | 2019-11-13 15:26 | NUR ---
RALPH FROM [facility] TO ER BED 12. AAO4. NOT IN RESP DISTRESS. BREATHNG EVEN AND UNLABORED. AMBULATORY. CAME IN FOR MID CHEST PAIN NON RADIATING 2/10 PRESSURE SINCE THIS MORNING. ALSO COMPLAINS OF ABDOMINAL PAIN 3/10 AND NAUSEA. PT IS NOTED SHAKING AND WITH TREMORS. MD WAS AT BEDSIDE FOR REUBEN. ORDERS RECEIVED NOTED AND CARRIED OUT. IV LINE OBTAINED ON L AC 20G.
[2019-11-13] MEDS ORDERED: PANTOPRAZOLE 40 MG VIAL IV ONE (15:30)
[2019-11-13] MEDS ORDERED: PANTOPRAZOLE 40 MG VIAL ONE (15:34)
[2019-11-13 15:36] LABS: BASOPHILS # (AUTO) 0.1 /CMM (0.0-0.2); EOSINOPHILS % (AUTO) 0.3 % (0.0-6.0); HEMATOCRIT 39 % (39-51); HEMOGLOBIN 13.2 g/dL (13.5-17.5); LYMPHOCYTES # (AUTO) 1.9 /CMM (0.8-4.8); LYMPHOCYTES % (AUTO) 18.3 % (20.0-44.0); MEAN CORPUSCULAR HGB CONC 34 g/dl (31.0-36.0); MEAN CORPUSCULAR VOLUME 89 fL (80-96); MONOCYTES # (AUTO) 0.7 /CMM (0.1-1.30); MONOCYTES % (AUTO) 6.6 % (2.0-12.0); NEUTROPHILS # (AUTO) 7.8 /CMM (1.8-8.9); NEUTROPHILS % (AUTO) 73.8 % (43.0-81.0); PLATELET COUNT (AUTO) 377 /CMM (150-450); WHITE BLOOD COUNT (AUTO) 10.6 K/uL (4.3-11.0)
[2019-11-13 15:40] LABS: APPEARANCE,URINE Clear (CLEAR); BILIRUBIN,URINE Negative (NEGATIVE); BLOOD, URINE Negative Ery/uL (NEGATIVE); COLOR,URINE Yellow (YELLOW); KETONES,URINE Negative (NEGATIVE); LEUKOCYTE ESTERASE ,URINE Negative (NEGATIVE); NITRITE, URINE Negative (NEGATIVE); PH,URINE 7.5 (5.0-8.0); PROTEIN,URINE Negative (NEGATIVE); UGLUCOSE Negative (NEGATIVE); UROBILINOGEN,URINE 0.2 EU/dL (0.2)
[2019-11-13 15:49] LABS: CALCIUM, SERUM 8.8 mg/dL (8.5-10.1); CREATININE 0.8 mg/dL (0.6-1.3); POTASSIUM 4.1 mmol/L (3.5-5.1)
[2019-11-13 16:02] LABS: ALCOHOL, BLOOD < 3 mg/dL (0-0)
[2019-11-13 16:03] LABS: ALBUMIN 3.6 g/dL (3.4-5.0); BILIRUBIN,DIRECT 0.1 mg/dL (0.0-0.2); BILIRUBIN,TOTAL 0.5 mg/dL (0.2-1.0); TOTAL PROTEIN, SERUM 6.9 g/dL (6.4-8.2)
[2019-11-13 17:15] LABS: VALPROIC ACID 26 ug/mL (50-100)
--- NOTE | 2019-11-13 18:37 | NUR ---
REPORT GIVEN TO JENNY AT [facility]. TRANSPORT ETA 1944.
--- NOTE | 2019-11-13 18:55 | NUR ---
PT PROVIDED WITH MEAL
--- NOTE | 2019-11-13 19:42 | NUR ---
[facility] 144 AT BEDSIDEFOR PT [facility] REPORT GIVEN
--- NOTE | 2019-11-13 19:52 | NUR ---
PT IS MEDICALLY CLEARED TO GO BACK TO [facility]. PT LEFT ON [facility] W/ 2 AMBULANCE STAFF ON STABLE CONDITION.
[2019-11-13 19:53] VITALS: BP 148/87
== END 2019-11-13 19:53 | disposition home or self-care (01) ==
LOC: ER 14:34
DX: R10.13 Epigastric pain (principal); Q53.10 Unspecified undescended testicle, unilateral; D64.9 Anemia, unspecified; F20.9 Schizophrenia, unspecified; F41.9 Anxiety disorder, unspecified; E78.5 Hyperlipidemia, unspecified; I10 Essential (primary) hypertension; E11.9 Type 2 diabetes mellitus without complications; Z60.2 Problems related to living alone; Z79.899 Other long term (current) drug therapy; Z79.82 Long term (current) use of aspirin
CPT/HCPCS: 36415; 74176; 80048; 80076; 80164; 80305; 80307; 81001; 83690; 84484; 85025; 93005; 96374; 96375; 99285; C9113; J2405; 81000-TC; G0480

== ENCOUNTER 2022-09-23 13:39 | Emergency (ER) | payer OTHER ==
[~2022-09-23] VITALS: Ht 167.6 cm; Wt 99.8 kg
[~2022-09-23 13:39] MED LIST changes: -LISI-607 PO; +LISI-768 PO
--- NOTE | 2022-09-23 13:55 | NUR ---
bib ra 39 from [facility],worsening abdominal pain since this morning
--- NOTE | 2022-09-23 14:00 | NUR ---
established iv line 20 g at left hand
[2022-09-23 14:06] LABS: BASOPHILS # (AUTO) 0.3 K/uL (0.0-0.2); BASOPHILS % (AUTO) 2.8 % (0.0-2.0); EOSINOPHILS % (AUTO) 2.1 % (0.0-6.0); HEMATOCRIT 44 % (39-51); HEMOGLOBIN 14.9 g/dL (13.5-17.5); LYMPHOCYTES # (AUTO) 1.6 K/uL (0.8-4.8); LYMPHOCYTES % (AUTO) 16.7 % (20.0-44.0); MEAN CORPUSCULAR HGB CONC 34 g/dl (31.0-36.0); MEAN CORPUSCULAR VOLUME 89 fL (80-96); MONOCYTES # (AUTO) 0.7 K/uL (0.1-1.30); MONOCYTES % (AUTO) 7.8 % (2.0-12.0); NEUTROPHILS # (AUTO) 6.7 K/uL (1.8-8.9); NEUTROPHILS % (AUTO) 70.6 % (43.0-81.0); PLATELET COUNT (AUTO) 314 K/uL (150-450); RED BLOOD CELL COUNT(AUTO) 4.99 MIL/uL (4.5-6.0); WHITE BLOOD COUNT (AUTO) 9.5 K/uL (4.3-11.0)
--- NOTE | 2022-09-23 14:09 | NUR ---
urine sample obtained sent to lab
[2022-09-23] MEDS ORDERED: MAG HYDROX/AL HYDROX/SIMETH 30 ML UDC ONE (14:15)
[2022-09-23] MEDS ORDERED: KETOROLAC TROMETHAMINE 15 MG/ML VIAL ONE (14:15)
[2022-09-23] MEDS ORDERED: LIDOCAINE VISCOUS 2% UD 15 ML UDC ONE (14:15)
[2022-09-23 14:16] LABS: COLOR,URINE LIGHT YELLOW (YELLOW)
[2022-09-23 14:17] LABS: BILIRUBIN,URINE NEGATIVE (NEGATIVE); NITRITE, URINE NEGATIVE (NEGATIVE); PH,URINE 5.5 (5.0-8.0); PROTEIN,URINE NEGATIVE (NEGATIVE); UGLUCOSE 500 MG/DL mg/dL (NEGATIVE); UROBILINOGEN,URINE 0.2 EU/dL (0.2)
[2022-09-23 14:18] LABS: LEUKOCYTE ESTERASE ,URINE NEGATIVE (NEGATIVE)
[2022-09-23 14:19] LABS: CALCIUM, SERUM 9.3 mg/dL (8.5-10.1); POTASSIUM 4.2 mmol/L (3.5-5.1)
[2022-09-23 14:21] LABS: ALBUMIN 3.6 g/dL (3.4-5.0); BILIRUBIN,DIRECT 0.1 mg/dL (0.0-0.2); BILIRUBIN,TOTAL 0.3 mg/dL (0.2-1.0); TOTAL PROTEIN, SERUM 7.8 g/dL (6.4-8.2)
[2022-09-23] MEDS ORDERED: LIDOCAINE VISCOUS 2% UD 15 ML UDC MM ONE (14:30)
[2022-09-23] MEDS ORDERED: KETOROLAC TROMETHAMINE INJ 30 MG/ML VIAL IV ONE (14:30)
[2022-09-23] MEDS ORDERED: MAG HYDROX/AL HYDROX/SIMETH 30 ML UDC PO ONE (14:30)
--- NOTE | 2022-09-23 14:43 | NUR ---
[facility] AND SAID PT WOULD BE ABLE TO RETURN TO [place] UPON DISCHARGE IF HE DESIRES
[2022-09-23] MEDS ORDERED: MAG-55 PO (14:46)
--- NOTE | 2022-09-23 15:01 | NUR ---
CALLED [facility] TO SET UP TRANSPORT BACK TO [facility]. ETA IS 1630.
--- NOTE | 2022-09-23 16:07 | NUR ---
IV removed. Catheter intact and site benign. Pressure and 4x4 applied to site. No bleeding noted.
--- NOTE | 2022-09-23 16:40 | NUR ---
transport at bedside for pickup
[2022-09-23 16:48] VITALS: BP 129/88
--- NOTE | 2022-09-23 16:48 | NUR ---
Patient discharged back to facility in stable condition. Written and verbal after care instructions given. Patient verbalizes understanding of instruction.
== END 2022-09-23 16:49 ==
LOC: ER 13:40
DX: R10.33 Periumbilical pain (principal); E11.9 Type 2 diabetes mellitus without complications; F32.A Depression, unspecified; F20.9 Schizophrenia, unspecified; F41.9 Anxiety disorder, unspecified; Z79.899 Other long term (current) drug therapy; Z79.82 Long term (current) use of aspirin; Z79.84 Long term (current) use of oral hypoglycemic drugs; Z60.2 Problems related to living alone
CPT/HCPCS: 99284; 96374; 93005; 85025; 80048; 83690; 80076; 81003; 36415; 84484; J1885

== ENCOUNTER 2024-02-15 17:46 | Emergency (ER) | payer BC, OTHER ==
[~2024-02-15 17:46] MED LIST changes: +MAG-55 PO
--- NOTE | 2024-02-15 17:56 | NUR ---
CALLED TO TRIAGE,NO ANSWER
--- NOTE | 2024-02-15 18:22 | NUR ---
CALLED TO TRIAGE,NO ANSWER
--- NOTE | 2024-02-15 18:32 | NUR ---
CALLED TO TRIAGE,NO ANSWER
== END 2024-02-15 18:33 | disposition left against medical advice (07) ==
LOC: ER 17:48
DX: Z00.00 Encounter for general adult medical examination without abnormal findings (principal); Z53.21 Procedure and treatment not carried out due to patient leaving prior to being seen by health care provider

== ENCOUNTER 2024-02-20 14:33 | Emergency (ER) | payer BC, OTHER ==
[~2024-02-20] VITALS: Ht 172.7 cm; Wt 113.4 kg
[2024-02-20 15:09] VITALS: BP 134/75; TEMP 98.5; O2SAT 17
[2024-02-20 15:30] LABS: BASOPHILS # (AUTO) 0.1 K/uL (0.0-0.2); BASOPHILS % (AUTO) 0.7 % (0.0-2.0); EOSINOPHILS # (AUTO) 0.1 K/uL (0.0-0.7); HEMATOCRIT 45 % (39-51); HEMOGLOBIN 14.7 g/dL (13.5-17.5); LYMPHOCYTES # (AUTO) 2.5 K/uL (0.8-4.8); MEAN CORPUSCULAR HEMOGLOBIN 30 PG (26.0-33.0); MEAN CORPUSCULAR HGB CONC 33 g/dl (31.0-36.0); MEAN CORPUSCULAR VOLUME 92 fL (80-96); MONOCYTES # (AUTO) 0.8 K/uL (0.1-1.30); MONOCYTES % (AUTO) 8.6 % (2.0-12.0); NEUTROPHILS # (AUTO) 5.3 K/uL (1.8-8.9); NEUTROPHILS % (AUTO) 60.7 % (43.0-81.0); PLATELET COUNT (AUTO) 271 K/uL (150-450); RED BLOOD CELL COUNT(AUTO) 4.89 MIL/uL (4.5-6.0); RED CELL DISTRIBUTION WIDTH 14.2 % (11.5-15.0); WHITE BLOOD COUNT (AUTO) 8.8 K/uL (4.3-11.0)
[2024-02-20 15:36] LABS: APPEARANCE,URINE Clear (CLEAR); BILIRUBIN,URINE Negative (NEGATIVE); BLOOD, URINE Negative Ery/uL (NEGATIVE); COLOR,URINE YELLOW (YELLOW); KETONES,URINE Trace mg/dL (NEGATIVE); LEUKOCYTE ESTERASE ,URINE Negative (NEGATIVE); NITRITE, URINE Negative (NEGATIVE); PH,URINE 5.5 (5.0-8.0); PROTEIN,URINE Negative (NEGATIVE); UGLUCOSE >=1000 mg/dL (NEGATIVE); UROBILINOGEN,URINE 0.2 EU/dL (0.2)
[2024-02-20 15:42] LABS: CALCIUM, SERUM 9.2 mg/dL (8.5-10.1); CARBON DIOXIDE 23 mmol/L (21-32); CHLORIDE 103 mmol/L (98-107); CREATININE 0.7 mg/dL (0.6-1.3); GLUCOSE 244 mg/dL (74-106); POTASSIUM 4.2 mmol/L (3.5-5.1); SODIUM SERUM 137 mmol/L (136-145); UREA NITROGEN, BLOOD 15 mg/dL (7-18)
[2024-02-20 15:46] LABS: ADD URINE CULTURE NO; BACTERIA,URINE Rare /HPF (None Seen); MUCUS,URINE Few /LPF (None Seen); RBC,URINE 0-2 /HPF (0-2); SQUAMOUS EPITHELIAL CELL,UR 0-2 /HPF (None Seen); WBC,URINE 0-2 /HPF (0-3)
[2024-02-20 15:49] LABS: ACETAMINOPHEN 0 ug/ml (10-30); ALANINE AMINOTRANSFERASE 45 U/L (12-78); ALBUMIN 3.4 g/dL (3.4-5.0); ALCOHOL, BLOOD < 3 mg/dL (0-10); ALKALINE PHOSPHATASE 119 U/L (46-116); ASPARTATE AMINOTRANSFERASE 17 U/L (15-37); BILIRUBIN,DIRECT 0.1 mg/dL (0.0-0.2); BILIRUBIN,TOTAL 0.5 mg/dL (0.2-1.0); SALICYLATE 1.2 mg/dL (2.8-20.0); TOTAL PROTEIN, SERUM 7.1 g/dL (6.4-8.2)
[2024-02-20 15:59] LABS: AMPHETAMINE, URINE NEGATIVE (NEGATIVE); BARBITURATE, URINE NEGATIVE (NEGATIVE); BENZODIAZEPINE, URINE NEGATIVE (NEGATIVE); CANNABINOID, URINE NEGATIVE (NEGATIVE); COCCAINE, URINE NEGATIVE (NEGATIVE); OPIATE, URINE NEGATIVE (NEGATIVE); PHENCYCLIDINE SCREEN,URINE NEGATIVE (NEGATIVE)
== END 2024-02-20 16:11 | disposition left against medical advice (07) ==
LOC: ER 14:35
DX: F32.A Depression, unspecified (principal); F41.9 Anxiety disorder, unspecified; E11.9 Type 2 diabetes mellitus without complications; F20.9 Schizophrenia, unspecified; Z20.822 Contact with and (suspected) exposure to COVID-19
CPT/HCPCS: 36415; 80048-TC; 80076-TC; 81001; 85025-TC; G0480

== ENCOUNTER 2024-05-02 01:18 | Emergency (ER) | payer BC, OTHER ==
[~2024-05-02] VITALS: Ht 177.8 cm; Wt 108.9 kg
[2024-05-02 03:33] LABS: APPEARANCE,URINE CLEAR (CLEAR); BILIRUBIN,URINE NEGATIVE (NEGATIVE); BLOOD, URINE NEGATIVE Ery/uL (NEGATIVE); COLOR,URINE YELLOW (YELLOW); KETONES,URINE NEGATIVE (NEGATIVE); LEUKOCYTE ESTERASE ,URINE NEGATIVE (NEGATIVE); NITRITE, URINE NEGATIVE (NEGATIVE); PROTEIN,URINE NEGATIVE (NEGATIVE); UGLUCOSE 3+ mg/dL (NEGATIVE); UROBILINOGEN,URINE 0.2 EU/dL (0.2)
[2024-05-02 03:34] LABS: BASOPHILS % (AUTO) 0.3 % (0.0-2.0); EOSINOPHILS # (AUTO) 0.1 K/uL (0.0-0.7); EOSINOPHILS % (AUTO) 1.5 % (0.0-6.0); HEMATOCRIT 42 % (39-51); HEMOGLOBIN 14.3 g/dL (13.5-17.5); LYMPHOCYTES # (AUTO) 2.8 K/uL (0.8-4.8); LYMPHOCYTES % (AUTO) 33.4 % (20.0-44.0); MEAN CORPUSCULAR HEMOGLOBIN 30 PG (26.0-33.0); MEAN CORPUSCULAR HGB CONC 34 g/dl (31.0-36.0); MEAN CORPUSCULAR VOLUME 89 fL (80-96); MONOCYTES # (AUTO) 0.8 K/uL (0.1-1.30); MONOCYTES % (AUTO) 9.1 % (2.0-12.0); NEUTROPHILS # (AUTO) 4.7 K/uL (1.8-8.9); NEUTROPHILS % (AUTO) 55.7 % (43.0-81.0); PLATELET COUNT (AUTO) 260 K/uL (150-450); RED BLOOD CELL COUNT(AUTO) 4.72 MIL/uL (4.5-6.0); RED CELL DISTRIBUTION WIDTH 13.3 % (11.5-15.0); WHITE BLOOD COUNT (AUTO) 8.4 K/uL (4.3-11.0)
[2024-05-02 03:40] LABS: CARBON DIOXIDE 26 mmol/L (21-32); CHLORIDE 101 mmol/L (98-107); CREATININE 0.7 mg/dL (0.6-1.3); GLUCOSE 297 mg/dL (74-106); POTASSIUM 4.5 mmol/L (3.5-5.1); SODIUM SERUM 136 mmol/L (136-145); UREA NITROGEN, BLOOD 11 mg/dL (7-18)
[2024-05-02 03:42] LABS: AMPHETAMINE, URINE NEGATIVE (NEGATIVE); BARBITURATE, URINE NEGATIVE (NEGATIVE); BENZODIAZEPINE, URINE NEGATIVE (NEGATIVE); CANNABINOID, URINE NEGATIVE (NEGATIVE); COCCAINE, URINE NEGATIVE (NEGATIVE); OPIATE, URINE NEGATIVE (NEGATIVE); PHENCYCLIDINE SCREEN,URINE NEGATIVE (NEGATIVE)
[2024-05-02 03:46] LABS: ALANINE AMINOTRANSFERASE 47 U/L (12-78); ALBUMIN 3.4 g/dL (3.4-5.0); ALCOHOL, BLOOD < 3 mg/dL (0-10); ALKALINE PHOSPHATASE 124 U/L (46-116); ASPARTATE AMINOTRANSFERASE 12 U/L (15-37); BILIRUBIN,DIRECT 0.1 mg/dL (0.0-0.2); BILIRUBIN,TOTAL 0.4 mg/dL (0.2-1.0); TOTAL PROTEIN, SERUM 7.4 g/dL (6.4-8.2)
[2024-05-02 03:48] LABS: ACETAMINOPHEN <10 ug/ml (10-30); SALICYLATE 0.3 mg/dL (2.8-20.0)
[2024-05-02 03:50] LABS: ADD URINE CULTURE NO; BACTERIA,URINE None seen /HPF (None Seen); RBC,URINE NONE SEEN /HPF (0-2); SQUAMOUS EPITHELIAL CELL,UR Rare /HPF (None Seen); WBC,URINE NONE SEEN /HPF (0-3)
[2024-05-02 11:00] VITALS: BP 145/87; TEMP 98.6; O2SAT 96
[2024-05-02] MEDS ORDERED: METFORMIN 500 MG TABLET ONE (11:12)
[2024-05-02] MEDS: METFORMIN 500 MG TABLET PO ONE (11:13)
== END 2024-05-02 11:52 ==
LOC: ER 01:20
DX: F32.A Depression, unspecified (principal); F41.9 Anxiety disorder, unspecified; F20.9 Schizophrenia, unspecified; E11.9 Type 2 diabetes mellitus without complications; Z79.82 Long term (current) use of aspirin; Z79.84 Long term (current) use of oral hypoglycemic drugs; Z20.822 Contact with and (suspected) exposure to COVID-19
CPT/HCPCS: 36415; 80048-TC; 80076-TC; 81001; 82962-TC; 85025-TC; G0480

== ENCOUNTER 2024-05-09 19:23 | Emergency (ER) | payer MEDICARE, OTHER ==
[~2024-05-09] VITALS: Ht 172.7 cm; Wt 113.4 kg
[2024-05-09 21:47] VITALS: TEMP 98.1
[2024-05-09 22:26] LABS: APPEARANCE,URINE CLEAR (CLEAR); BILIRUBIN,URINE NEGATIVE (NEGATIVE); BLOOD, URINE NEGATIVE Ery/uL (NEGATIVE); COLOR,URINE YELLOW (YELLOW); KETONES,URINE NEGATIVE (NEGATIVE); LEUKOCYTE ESTERASE ,URINE NEGATIVE (NEGATIVE); NITRITE, URINE NEGATIVE (NEGATIVE); PROTEIN,URINE NEGATIVE (NEGATIVE); UGLUCOSE 3+ mg/dL (NEGATIVE); UROBILINOGEN,URINE 0.2 EU/dL (0.2)
[2024-05-09 22:36] LABS: BASOPHILS # (AUTO) 0.1 K/uL (0.0-0.2); BASOPHILS % (AUTO) 0.6 % (0.0-2.0); EOSINOPHILS # (AUTO) 0.1 K/uL (0.0-0.7); HEMATOCRIT 45 % (39-51); HEMOGLOBIN 14.9 g/dL (13.5-17.5); LYMPHOCYTES % (AUTO) 35.7 % (20.0-44.0); MEAN CORPUSCULAR HEMOGLOBIN 30 PG (26.0-33.0); MEAN CORPUSCULAR HGB CONC 34 g/dl (31.0-36.0); MEAN CORPUSCULAR VOLUME 90 fL (80-96); MONOCYTES # (AUTO) 0.9 K/uL (0.1-1.30); MONOCYTES % (AUTO) 10.1 % (2.0-12.0); NEUTROPHILS # (AUTO) 4.5 K/uL (1.8-8.9); NEUTROPHILS % (AUTO) 52.6 % (43.0-81.0); PLATELET COUNT (AUTO) 291 K/uL (150-450); RED BLOOD CELL COUNT(AUTO) 4.93 MIL/uL (4.5-6.0); RED CELL DISTRIBUTION WIDTH 13.5 % (11.5-15.0); WHITE BLOOD COUNT (AUTO) 8.5 K/uL (4.3-11.0)
[2024-05-09 22:36] LABS: AMPHETAMINE, URINE NEGATIVE (NEGATIVE); BARBITURATE, URINE NEGATIVE (NEGATIVE); BENZODIAZEPINE, URINE NEGATIVE (NEGATIVE); CANNABINOID, URINE NEGATIVE (NEGATIVE); COCCAINE, URINE NEGATIVE (NEGATIVE); OPIATE, URINE NEGATIVE (NEGATIVE); PHENCYCLIDINE SCREEN,URINE NEGATIVE (NEGATIVE)
[2024-05-09 22:38] LABS: ADD URINE CULTURE NO; BACTERIA,URINE None seen /HPF (None Seen); RBC,URINE NONE SEEN /HPF (0-2); SQUAMOUS EPITHELIAL CELL,UR Rare /HPF (None Seen); WBC,URINE NONE SEEN /HPF (0-3)
[2024-05-09 22:49] LABS: ACETAMINOPHEN <10 ug/ml (10-30); ALANINE AMINOTRANSFERASE 50 U/L (12-78); ALBUMIN 3.6 g/dL (3.4-5.0); ALCOHOL, BLOOD 4 mg/dL (0-10); ALKALINE PHOSPHATASE 138 U/L (46-116); ASPARTATE AMINOTRANSFERASE 19 U/L (15-37); BILIRUBIN,DIRECT 0.1 mg/dL (0.0-0.2); BILIRUBIN,TOTAL 0.5 mg/dL (0.2-1.0); CARBON DIOXIDE 25 mmol/L (21-32); CHLORIDE 98 mmol/L (98-107); CREATININE 0.9 mg/dL (0.6-1.3); GLUCOSE 311 mg/dL (74-106); POTASSIUM 4.6 mmol/L (3.5-5.1); SALICYLATE 0.6 mg/dL (2.8-20.0); SODIUM SERUM 133 mmol/L (136-145); TOTAL PROTEIN, SERUM 7.3 g/dL (6.4-8.2); UREA NITROGEN, BLOOD 11 mg/dL (7-18)
[2024-05-10 02:48] VITALS: BP 133/88; O2SAT 98
== END 2024-05-10 02:49 | disposition home or self-care (01) ==
LOC: ER 19:25
DX: F32.A Depression, unspecified (principal); F41.9 Anxiety disorder, unspecified; E11.9 Type 2 diabetes mellitus without complications; F20.9 Schizophrenia, unspecified; Z79.82 Long term (current) use of aspirin; Z79.84 Long term (current) use of oral hypoglycemic drugs; Z79.899 Other long term (current) drug therapy; Z20.822 Contact with and (suspected) exposure to COVID-19
CPT/HCPCS: 36415; 80048-TC; 80076-TC; 81001; 82962-TC; 85025-TC; G0480

== ENCOUNTER 2024-12-23 00:12 | Emergency (ER) | payer MEDICARE, OTHER ==
[~2024-12-23] VITALS: Ht 172.7 cm; Wt 111.1 kg
[2024-12-23 01:36] VITALS: TEMP 98
[2024-12-23 02:05] LABS: PLATELET COUNT (AUTO) 251 K/uL (150-450); RED BLOOD CELL COUNT(AUTO) 4.88 MIL/uL (4.5-6.0); RED CELL DISTRIBUTION WIDTH 12.9 % (11.5-15.0); WHITE BLOOD COUNT (AUTO) 10.3 K/uL (4.3-11.0)
[2024-12-23 02:12] LABS: CALCIUM, SERUM 9.0 mg/dL (8.5-10.1); CREATININE 0.8 mg/dL (0.6-1.3); SODIUM SERUM 125 mmol/L (136-145); UREA NITROGEN, BLOOD 10 mg/dL (7-18)
[2024-12-23 02:19] LABS: ALCOHOL, BLOOD < 3 mg/dL (0-10); ASPARTATE AMINOTRANSFERASE 23 U/L (15-37); TOTAL PROTEIN, SERUM 7.3 g/dL (6.4-8.2)
[2024-12-23 02:28] LABS: APPEARANCE,URINE CLEAR (CLEAR); BLOOD, URINE NEGATIVE Ery/uL (NEGATIVE); LEUKOCYTE ESTERASE ,URINE NEGATIVE (NEGATIVE); NITRITE, URINE NEGATIVE (NEGATIVE); UGLUCOSE 3+ mg/dL (NEGATIVE)
[2024-12-23 02:40] LABS: ADD URINE CULTURE NO; AMPHETAMINE, URINE NEGATIVE (NEGATIVE); BARBITURATE, URINE NEGATIVE (NEGATIVE); BENZODIAZEPINE, URINE NEGATIVE (NEGATIVE); CANNABINOID, URINE NEGATIVE (NEGATIVE); COCCAINE, URINE NEGATIVE (NEGATIVE); OPIATE, URINE NEGATIVE (NEGATIVE); SQUAMOUS EPITHELIAL CELL,UR 0-2 /HPF (None Seen)
[2024-12-23] MEDS ORDERED: ACETAMINOPHEN 650 MG/20.3 ML UDC ONE (04:02)
[2024-12-23] MEDS: ACETAMINOPHEN 650 MG/20.3 ML UDC PO ONE (04:05)
[2024-12-23] MEDS: IV NS 0.9% 1,000 ML IV ONE (04:21)
[2024-12-23 04:42] LABS: ASPARTATE AMINOTRANSFERASE 25.0 U/L (15-37); CALCIUM, SERUM 8.9 mg/dL (8.5-10.1); CREATININE 0.7 mg/dL (0.6-1.3); SODIUM SERUM 123.0 mmol/L (136-145); TOTAL PROTEIN, SERUM 7.3 g/dL (6.4-8.2); UREA NITROGEN, BLOOD 10.0 mg/dL (7-18)
[2024-12-23 06:20] LABS: ASPARTATE AMINOTRANSFERASE 22.0 U/L (15-37); CALCIUM, SERUM 8.3 mg/dL (8.5-10.1); CREATININE 0.7 mg/dL (0.6-1.3); SODIUM SERUM 129.0 mmol/L (136-145); TOTAL PROTEIN, SERUM 6.8 g/dL (6.4-8.2); UREA NITROGEN, BLOOD 9.0 mg/dL (7-18)
[2024-12-23 06:30] VITALS: BP 142/84
[2024-12-23 07:15] VITALS: O2SAT 99
[2024-12-23] MEDS ORDERED: LORAZEPAM 1 MG TABLET ONE (09:11)
[2024-12-23] MEDS: LORAZEPAM 1 MG TABLET PO ONE (09:19)
== END 2024-12-23 09:21 ==
LOC: ER 00:49
DX: F32.A Depression, unspecified (principal); E11.9 Type 2 diabetes mellitus without complications; F20.9 Schizophrenia, unspecified; F41.9 Anxiety disorder, unspecified; Z79.82 Long term (current) use of aspirin; Z79.84 Long term (current) use of oral hypoglycemic drugs; Z79.899 Other long term (current) drug therapy; Z60.2 Problems related to living alone; Z20.822 Contact with and (suspected) exposure to COVID-19
CPT/HCPCS: 99285; 96360; 71045; 85025; 81001; 36415; 80053 ×3; 82962; 87426; 80143; 80320; 80307; 98960; J7030; G0480

== ENCOUNTER 2024-12-27 09:33 | Emergency (ER) | payer MEDICARE, OTHER ==
[~2024-12-27] VITALS: Ht 172.7 cm; Wt 111.1 kg
[2024-12-27 10:44] LABS: PLATELET COUNT (AUTO) 297 K/uL (150-450); RED BLOOD CELL COUNT(AUTO) 5.08 MIL/uL (4.5-6.0); RED CELL DISTRIBUTION WIDTH 13.0 % (11.5-15.0); WHITE BLOOD COUNT (AUTO) 10.2 K/uL (4.3-11.0)
[2024-12-27 10:52] LABS: CALCIUM, SERUM 8.8 mg/dL (8.5-10.1); CREATININE 0.7 mg/dL (0.6-1.3); SODIUM SERUM 125 mmol/L (136-145); UREA NITROGEN, BLOOD 9 mg/dL (7-18)
[2024-12-27 10:56] LABS: APPEARANCE,URINE CLEAR (CLEAR); BLOOD, URINE NEGATIVE Ery/uL (NEGATIVE); LEUKOCYTE ESTERASE ,URINE NEGATIVE (NEGATIVE); NITRITE, URINE NEGATIVE (NEGATIVE); UGLUCOSE 3+ mg/dL (NEGATIVE)
[2024-12-27 10:58] LABS: ALCOHOL, BLOOD < 3 mg/dL (0-10); ASPARTATE AMINOTRANSFERASE 21 U/L (15-37); TOTAL PROTEIN, SERUM 7.7 g/dL (6.4-8.2)
[2024-12-27] MEDS ORDERED: LORAZEPAM 1 MG TABLET ONE (11:01)
[2024-12-27 11:06] LABS: ADD URINE CULTURE NO; SQUAMOUS EPITHELIAL CELL,UR 0-2 /HPF (None Seen)
[2024-12-27] MEDS: LORAZEPAM 1 MG TABLET PO ONE (11:07)
[2024-12-27 11:14] LABS: AMPHETAMINE, URINE NEGATIVE (NEGATIVE); BARBITURATE, URINE NEGATIVE (NEGATIVE); BENZODIAZEPINE, URINE NEGATIVE (NEGATIVE); CANNABINOID, URINE NEGATIVE (NEGATIVE); COCCAINE, URINE NEGATIVE (NEGATIVE); OPIATE, URINE NEGATIVE (NEGATIVE)
[2024-12-27] MEDS ORDERED: ACETAMINOPHEN ES 500 MG TABLET ONE (11:46)
[2024-12-27] MEDS: ACETAMINOPHEN ES 500 MG TABLET PO ONE (11:49)
[2024-12-27 14:00] VITALS: BP 148/99; TEMP 98.9; O2SAT 98
== END 2024-12-27 15:40 ==
LOC: ER 09:41
DX: F41.9 Anxiety disorder, unspecified (principal); F32.A Depression, unspecified; I10 Essential (primary) hypertension; R45.851 Suicidal ideations; E11.9 Type 2 diabetes mellitus without complications; E87.1 Hypo-osmolality and hyponatremia; F20.9 Schizophrenia, unspecified; Z59.00 Homelessness unspecified; Z79.82 Long term (current) use of aspirin; Z79.84 Long term (current) use of oral hypoglycemic drugs; Z79.899 Other long term (current) drug therapy; Z60.2 Problems related to living alone; Z20.822 Contact with and (suspected) exposure to COVID-19
CPT/HCPCS: 36415; 80048-TC; 80076-TC; 81001; 85025-TC; G0480

== ENCOUNTER 2025-01-15 12:59 | Emergency (ER) | payer MEDICARE, OTHER ==
[~2025-01-15] VITALS: Ht 172.7 cm; Wt 108.9 kg
[2025-01-15 13:17] VITALS: BP 123/88; TEMP 98.2; O2SAT 97
== END 2025-01-15 15:06 | disposition left against medical advice (07) ==
LOC: ER 13:02
DX: R51.9 Headache, unspecified (principal); Z53.21 Procedure and treatment not carried out due to patient leaving prior to being seen by health care provider

== ENCOUNTER 2025-01-17 08:06 | Emergency (ER) | payer MEDICARE, OTHER ==
[~2025-01-17] VITALS: Ht 170.2 cm; Wt 102.1 kg
[2025-01-17] MEDS ORDERED: ASPIRIN 81 MG TAB.CHEW ONE (08:42)
[2025-01-17] MEDS: ASPIRIN 81 MG TAB.CHEW PO ONE (08:43)
[2025-01-17 08:52] LABS: PLATELET COUNT (AUTO) 297 K/uL (150-450); RED BLOOD CELL COUNT(AUTO) 5.09 MIL/uL (4.5-6.0); RED CELL DISTRIBUTION WIDTH 13.1 % (11.5-15.0); WHITE BLOOD COUNT (AUTO) 8.2 K/uL (4.3-11.0)
[2025-01-17 09:01] LABS: CALCIUM, SERUM 9.5 mg/dL (8.5-10.1); CREATININE 0.7 mg/dL (0.6-1.3); SODIUM SERUM 127 mmol/L (136-145); UREA NITROGEN, BLOOD 10 mg/dL (7-18)
[2025-01-17 09:06] LABS: INR 1.02 (0.91-1.10)
[2025-01-17 09:10] LABS: ASPARTATE AMINOTRANSFERASE 26 U/L (15-37); TOTAL PROTEIN, SERUM 7.4 g/dL (6.4-8.2)
[2025-01-17 09:11] LABS: ALCOHOL, BLOOD < 3 mg/dL (0-10)
[2025-01-17 10:00] VITALS: BP 126/85; TEMP 98; O2SAT 96
[2025-01-18] MEDS ORDERED: METF-440 PO (10:31)
[2025-01-18] MEDS ORDERED: RISP1TAB97 PO (10:31)
[2025-01-18] MEDS ORDERED: BENZ0.5T43 PO (10:31)
[2025-01-18] MEDS ORDERED: NIFE90TA38 PO (10:31)
== END 2025-01-17 10:02 | disposition left against medical advice (07) ==
LOC: ER 08:12
DX: R07.89 Other chest pain (principal); I10 Essential (primary) hypertension; E11.65 Type 2 diabetes mellitus with hyperglycemia; F20.9 Schizophrenia, unspecified; F32.A Depression, unspecified; F41.9 Anxiety disorder, unspecified; Z79.82 Long term (current) use of aspirin; Z79.84 Long term (current) use of oral hypoglycemic drugs; Z79.899 Other long term (current) drug therapy; Z59.00 Homelessness unspecified
CPT/HCPCS: 36415; 71045-TC; 80048-TC; 80076-TC; 84484-TC; 85025-TC; 85730-TC; G0480

== ENCOUNTER 2025-01-17 12:47 | Emergency (ER) | payer MEDICARE, OTHER ==
[~2025-01-17] VITALS: Ht 167.6 cm; Wt 97.5 kg
[2025-01-17 12:56] VITALS: BP 135/78; TEMP 98.1; O2SAT 95
[2025-01-18] MEDS ORDERED: METF-440 PO (10:31)
[2025-01-18] MEDS ORDERED: RISP1TAB97 PO (10:31)
[2025-01-18] MEDS ORDERED: BENZ0.5T43 PO (10:31)
[2025-01-18] MEDS ORDERED: NIFE90TA38 PO (10:31)
== END 2025-01-17 13:41 | disposition home or self-care (01) ==
LOC: ER 12:53
DX: R51.9 Headache, unspecified (principal); Z53.21 Procedure and treatment not carried out due to patient leaving prior to being seen by health care provider
CPT/HCPCS: 71045-TC

== ENCOUNTER 2025-01-17 23:31 | Emergency (ER) | payer MEDICARE, OTHER ==
[2025-01-18] MEDS ORDERED: METF-440 PO (10:31)
[2025-01-18] MEDS ORDERED: RISP1TAB97 PO (10:31)
[2025-01-18] MEDS ORDERED: NIFE90TA38 PO (10:31)
[2025-01-18] MEDS ORDERED: BENZ0.5T43 PO (10:31)
== END 2025-01-18 02:20 | disposition left against medical advice (07) ==
LOC: ER 23:36
DX: Z00.8 Encounter for other general examination (principal); Z53.21 Procedure and treatment not carried out due to patient leaving prior to being seen by health care provider

== ENCOUNTER 2025-01-18 07:40 | Emergency (ER) | payer MEDICARE, OTHER ==
[~2025-01-18] VITALS: Ht 172.7 cm; Wt 113.4 kg
[2025-01-18] MEDS: ASPIRIN 325 MG TABLET PO ONE (07:59)
[2025-01-18] MEDS ORDERED: OLANZAPINE 5 MG TABLET ONE (08:08)
[2025-01-18] MEDS ORDERED: ASPIRIN 325 MG TABLET ONE (08:08)
[2025-01-18] MEDS: OLANZAPINE ZYDIS 5 MG TAB.RAPDIS PO ONE (08:11)
[2025-01-18 08:18] LABS: APPEARANCE,URINE CLEAR (CLEAR); BLOOD, URINE TRACE-INTA Ery/uL (NEGATIVE); LEUKOCYTE ESTERASE ,URINE NEGATIVE (NEGATIVE); NITRITE, URINE NEGATIVE (NEGATIVE); UGLUCOSE 3+ mg/dL (NEGATIVE)
[2025-01-18 08:24] LABS: PLATELET COUNT (AUTO) 302 K/uL (150-450); RED BLOOD CELL COUNT(AUTO) 4.83 MIL/uL (4.5-6.0); RED CELL DISTRIBUTION WIDTH 12.6 % (11.5-15.0); WHITE BLOOD COUNT (AUTO) 10.2 K/uL (4.3-11.0)
[2025-01-18 08:30] VITALS: BP 141/84; TEMP 98; O2SAT 96
[2025-01-18 08:38] LABS: ADD URINE CULTURE NO; SQUAMOUS EPITHELIAL CELL,UR 0-2 /HPF (None Seen)
[2025-01-18 09:00] LABS: ALCOHOL, BLOOD < 3 mg/dL (0-10); ASPARTATE AMINOTRANSFERASE 30 U/L (15-37); CALCIUM, SERUM 8.8 mg/dL (8.5-10.1); CREATININE 0.8 mg/dL (0.6-1.3); TOTAL PROTEIN, SERUM 7.2 g/dL (6.4-8.2); UREA NITROGEN, BLOOD 5 mg/dL (7-18)
[2025-01-18 09:00] LABS: AMPHETAMINE, URINE NEGATIVE (NEGATIVE); BARBITURATE, URINE NEGATIVE (NEGATIVE); BENZODIAZEPINE, URINE NEGATIVE (NEGATIVE); CANNABINOID, URINE NEGATIVE (NEGATIVE); COCCAINE, URINE NEGATIVE (NEGATIVE); OPIATE, URINE NEGATIVE (NEGATIVE)
[2025-01-18 09:02] LABS: SODIUM SERUM 115 mmol/L (136-145)
[2025-01-18] MEDS ORDERED: RISP1TAB97 PO (10:31)
[2025-01-18] MEDS ORDERED: METF-440 PO (10:31)
[2025-01-18] MEDS ORDERED: NIFE90TA38 PO (10:31)
[2025-01-18] MEDS ORDERED: BENZ0.5T43 PO (10:31)
== END 2025-01-18 09:11 | disposition left against medical advice (07) ==
LOC: ER 08:28
DX: F20.9 Schizophrenia, unspecified (principal); R07.9 Chest pain, unspecified; I10 Essential (primary) hypertension; E11.65 Type 2 diabetes mellitus with hyperglycemia; E87.1 Hypo-osmolality and hyponatremia; F32.A Depression, unspecified; F41.9 Anxiety disorder, unspecified; Z79.82 Long term (current) use of aspirin; Z79.84 Long term (current) use of oral hypoglycemic drugs; Z79.899 Other long term (current) drug therapy
CPT/HCPCS: 36415; 71045-TC; 80048-TC; 80076-TC; 81001; 84484-TC; 85025-TC; G0480

== ENCOUNTER 2025-01-18 09:46 | Inpatient (IN) | payer MEDICARE, OTHER ==
[~2025-01-18] VITALS: Ht 167.6 cm; Wt 115.7 kg
[2025-01-18] MEDS: IV NS 0.9% 1,000 ML BAG IV ONE (10:05)
[2025-01-18 10:17] LABS: PLATELET COUNT (AUTO) 285 K/uL (150-450); RED BLOOD CELL COUNT(AUTO) 4.84 MIL/uL (4.5-6.0); RED CELL DISTRIBUTION WIDTH 12.6 % (11.5-15.0); WHITE BLOOD COUNT (AUTO) 9.8 K/uL (4.3-11.0)
[2025-01-18 10:23] LABS: CALCIUM, SERUM 8.5 mg/dL (8.5-10.1); CREATININE 0.8 mg/dL (0.6-1.3); UREA NITROGEN, BLOOD 4 mg/dL (7-18)
[2025-01-18 10:26] LABS: SODIUM SERUM 114 mmol/L (136-145)
[2025-01-18] MEDS ORDERED: RISP1TAB97 PO (10:31)
[2025-01-18] MEDS ORDERED: NIFE90TA38 PO (10:31)
[2025-01-18] MEDS ORDERED: BENZ0.5T43 PO (10:31)
[2025-01-18] MEDS ORDERED: METF-440 PO (10:31)
[2025-01-18 12:00] VITALS: BP 147/81; TEMP 97.5; TEMP 98.2; O2SAT 95
[2025-01-18] MEDS ORDERED: ZOLPIDEM TARTRATE 5 MG TABLET PO PRN (13:30)
[2025-01-18] MEDS ORDERED: ACETAMINOPHEN 325 MG TABLET PO PRN (13:30)
[2025-01-18] MEDS ORDERED: IV NS 0.9% 1,000 ML IV PRN (13:30)
[2025-01-18] MEDS ORDERED: ONDANSETRON HCL/PF 4 MG/2 ML VIAL IVP PRN (13:30)
[2025-01-18] MEDS ORDERED: Z GUARD REMEDY 4 OZ OINT TP PRN (13:30)
[2025-01-18] MEDS ORDERED: MAGNESIUM HYDROXIDE 30 ML UDC PO PRN (13:30)
[2025-01-18] MEDS ORDERED: MAG HYDROX/AL HYDROX/SIMETH 30 ML UDC PO PRN (13:30)
[2025-01-18 15:37] VITALS: BP 121/69; TEMP 97.7; O2SAT 95
[2025-01-18 20:00] VITALS: BP 112/71; TEMP 98.3; O2SAT 94
[2025-01-19] VITALS: BP 114/85; TEMP 98.2; O2SAT 93
[2025-01-19] MEDS: HEPARIN SODIUM, PORCINE 5000 UNITS/1 ML VIAL SQ SCH
[2025-01-19] MEDS ORDERED: PANTOPRAZOLE 40 MG TABLET.DR PO SCH (07:30)
== END 2025-01-19 03:00 | disposition left against medical advice (07) | DRG 641 ==
LOC: ER 10:00 → TELE 11:25
PROVIDERS: ATTEND Registered Nurse Psychiatric/Mental Health
DX: E87.1 Hypo-osmolality and hyponatremia (principal); Z68.41 Body mass index [BMI] 40.0-44.9, adult; E66.01 Morbid (severe) obesity due to excess calories; E78.5 Hyperlipidemia, unspecified; F32.A Depression, unspecified; F41.9 Anxiety disorder, unspecified; I10 Essential (primary) hypertension; Z53.29 Procedure and treatment not carried out because of patient's decision for other reasons; F20.9 Schizophrenia, unspecified; Z79.84 Long term (current) use of oral hypoglycemic drugs; Z20.822 Contact with and (suspected) exposure to COVID-19; R07.9 Chest pain, unspecified; R07.81 Pleurodynia; R07.89 Other chest pain; E11.9 Type 2 diabetes mellitus without complications
CPT/HCPCS: 36415; 71045-TC; 80048-TC; 80076-TC; 81001; 84484-TC; 85025-TC; 87081-TC; A4223; G0378; G0480; J7030

== ENCOUNTER 2025-04-06 19:32 | Inpatient (IN) | payer MEDICARE, OTHER ==
[~2025-04-06] VITALS: Ht 167.6 cm; Wt 113.4 kg
[~2025-04-06 19:32] MED LIST changes: -ACET325T53 PO; -ASPI-1169 PO; -ATOR10TA PO; +BENZ0.5T43 PO; -BENZ1TAB7 PO; -DIVA500T2 PO; -LISI-768 PO; -MAG-55 PO; +NIFE90TA38 PO; +RISP1TAB97 PO; -TRAZ-252 PO; -ZIPR20CA2 PO
[2025-04-06 20:23] LABS: PLATELET COUNT (AUTO) 253 K/uL (150-450); RED BLOOD CELL COUNT(AUTO) 4.77 MIL/uL (4.5-6.0); RED CELL DISTRIBUTION WIDTH 13.2 % (11.5-15.0); WHITE BLOOD COUNT (AUTO) 7.4 K/uL (4.3-11.0)
[2025-04-06 20:30] LABS: CALCIUM, SERUM 8.6 mg/dL (8.5-10.1); CREATININE 0.7 mg/dL (0.6-1.3); SODIUM SERUM 133.0 mmol/L (136-145); UREA NITROGEN, BLOOD 15.0 mg/dL (7-18)
[2025-04-06 20:44] LABS: ASPARTATE AMINOTRANSFERASE 15.0 U/L (15-37); TOTAL PROTEIN, SERUM 7.0 g/dL (6.4-8.2)
[2025-04-06 20:56] LABS: APPEARANCE,URINE CLEAR (CLEAR); BLOOD, URINE NEGATIVE Ery/uL (NEGATIVE); LEUKOCYTE ESTERASE ,URINE NEGATIVE (NEGATIVE); NITRITE, URINE NEGATIVE (NEGATIVE); UGLUCOSE 3+ mg/dL (NEGATIVE)
[2025-04-06 21:15] LABS: ADD URINE CULTURE NO; SQUAMOUS EPITHELIAL CELL,UR Few /HPF (None Seen)
[2025-04-06 21:16] LABS: AMPHETAMINE, URINE NEGATIVE (NEGATIVE); BARBITURATE, URINE NEGATIVE (NEGATIVE); BENZODIAZEPINE, URINE NEGATIVE (NEGATIVE); CANNABINOID, URINE NEGATIVE (NEGATIVE); COCCAINE, URINE NEGATIVE (NEGATIVE); OPIATE, URINE NEGATIVE (NEGATIVE)
[2025-04-06] MEDS ORDERED: DEXTROSE 50%-WATER 50 ML DISP.SYRIN IV PRN (21:30)
[2025-04-06] MEDS: BLOOD SUGAR DIAGNOSTIC 1 EACH STRIP IN SCH (22:00)
[2025-04-07] MEDS ORDERED: DIVA250T PO (00:37)
[2025-04-07] MEDS ORDERED: MIRT-90 PO (00:37)
[2025-04-07] MEDS ORDERED: AMOX500C2 PO (00:37)
[2025-04-07] MEDS ORDERED: METO50TA16 PO (00:37)
[2025-04-07] MEDS ORDERED: AMLO5TAB4 PO (00:37)
[2025-04-07] MEDS ORDERED: SITA50TA PO (00:37)
[2025-04-07] MEDS ORDERED: GABA-532 PO (00:37)
[2025-04-07] MEDS ORDERED: QUETIAPINE FUMARATE 25 MG TABLET PO PRN (01:30)
[2025-04-07] MEDS ORDERED: ZOLPIDEM TARTRATE 5 MG TABLET PO PRN (01:30)
[2025-04-07] MEDS ORDERED: MAGNESIUM HYDROXIDE 30 ML UDC PO PRN (01:30)
[2025-04-07] MEDS ORDERED: MAG HYDROX/AL HYDROX/SIMETH 30 ML UDC PO PRN (01:30)
[2025-04-07] MEDS: INSULIN REGULAR, HUMAN 100 UNIT/ML 10 ML VIAL SQ ONE (01:32)
[2025-04-07] MEDS: BLOOD SUGAR DIAGNOSTIC 1 EACH STRIP IN ONE (01:44)
[2025-04-07 01:50] VITALS: BP 115/59; TEMP 98.1; O2SAT 92
[2025-04-07] MEDS: INSULIN REGULAR, HUMAN 100 UNIT/ML 3 ML VIAL SQ PRN (06:58)
[2025-04-07 08:00] VITALS: BP 122/76; TEMP 97.6; O2SAT 96
[2025-04-07] MEDS: METFORMIN 500 MG TABLET PO SCH (08:46)
[2025-04-07] MEDS: NIFEdipine XL (30MG) 30 MG TAB PO SCH (08:46)
[2025-04-07] MEDS: BENZTROPINE MESYLATE (1 MG) 1 MG TABLET PO SCH (08:47)
[2025-04-07] MEDS: ACETAMINOPHEN 325 MG TABLET PO PRN (09:19)
[2025-04-07] MEDS: DIVALPROEX SODIUM 250 MG TABLET.DR PO SCH (13:00)
[2025-04-07] MEDS: GABAPENTIN 100 MG CAPSULE PO SCH (13:00)
[2025-04-07] MEDS: AMOXICILLIN TRIHYDRATE 250 MG CAPSULE PO SCH (13:51)
[2025-04-07 16:00] VITALS: BP 138/92; TEMP 97.5; O2SAT 96
[2025-04-07] MEDS: IBUPROFEN 600 MG TABLET PO PRN (17:06)
[2025-04-07 20:53] VITALS: BP 107/73; TEMP 97.7; O2SAT 96
[2025-04-08 08:00] VITALS: BP 115/54; TEMP 98.9; O2SAT 98
[2025-04-08] MEDS: AMLODIPINE BESYLATE 5 MG TABLET PO SCH (08:13)
[2025-04-08] MEDS: LINAGLIPTIN 5 MG TABLET PO SCH (09:00)
[2025-04-08 16:00] VITALS: BP 115/74; TEMP 98.4; O2SAT 98
[2025-04-08] MEDS: GABAPENTIN 100 MG CAPSULE PO SCH (17:19)
[2025-04-08 19:58] VITALS: BP 125/62; TEMP 98.4; O2SAT 100
[2025-04-08] MEDS: DIVALPROEX SODIUM 500 MG TABLET.DR PO SCH (20:12)
[2025-04-08] MEDS: INSULIN REGULAR, HUMAN 100 UNIT/ML 10 ML VIAL SQ ONE (23:29)
[2025-04-09] MEDS: ZOLPIDEM TARTRATE 5 MG TABLET PO PRN (01:28)
[2025-04-09 08:00] VITALS: BP 133/85; TEMP 97.2; O2SAT 94
[2025-04-09 08:53] VITALS: BP 133/85; TEMP 97.7; O2SAT 94
[2025-04-09] MEDS: LINAGLIPTIN 5 MG TABLET PO SCH (10:34)
[2025-04-09 16:00] VITALS: BP 141/73; TEMP 98.1; O2SAT 100
[2025-04-09 17:16] VITALS: BP 141/73; TEMP 98.1; O2SAT 100
[2025-04-09 19:59] VITALS: BP 139/84; TEMP 98.4; O2SAT 100
[2025-04-09] MEDS: INSULIN GLARGINE, 100 UNIT/ML CARTRIDGE SQ SCH (22:00)
[2025-04-10 08:00] VITALS: BP 138/92; TEMP 98; O2SAT 100
[2025-04-10 16:00] VITALS: BP 147/82; TEMP 98.1; O2SAT 97
[2025-04-10 16:12] VITALS: BP 147/82; TEMP 98.1
[2025-04-10 20:05] VITALS: BP 133/81; TEMP 97.7; O2SAT 96
[2025-04-11 08:00] VITALS: BP 150/94; TEMP 98.2; O2SAT 95
[2025-04-11] MEDS: risperiDONE-M 0.5 MG TAB.RAPDIS PO STA (11:20)
[2025-04-11 16:00] VITALS: BP 121/70; TEMP 98.1; O2SAT 93
[2025-04-12 08:00] VITALS: BP 136/101; TEMP 97.7; O2SAT 96
[2025-04-12 16:00] VITALS: BP 102/89; TEMP 98.3; O2SAT 97
[2025-04-12 20:00] VITALS: BP 150/90; TEMP 98.3; O2SAT 97
[2025-04-13 08:00] VITALS: BP 169/104; TEMP 97.8; O2SAT 97
[2025-04-13] MEDS: OLANZAPINE 10 MG VIAL IM STA (15:59)
[2025-04-13 16:09] VITALS: BP 142/91; TEMP 98.8; O2SAT 96
[2025-04-14 08:00] VITALS: BP 117/65; TEMP 98.5; O2SAT 98
[2025-04-14 16:00] VITALS: BP 159/95; TEMP 98.5; O2SAT 94
[2025-04-14 20:08] VITALS: BP 152/88; TEMP 98.4; O2SAT 96
[2025-04-15 08:00] VITALS: BP 161/87; TEMP 98.1; O2SAT 98
[2025-04-15 10:56] LABS: PLATELET COUNT (AUTO) 263 K/uL (150-450); RED BLOOD CELL COUNT(AUTO) 4.62 MIL/uL (4.5-6.0); RED CELL DISTRIBUTION WIDTH 13.2 % (11.5-15.0); WHITE BLOOD COUNT (AUTO) 7.0 K/uL (4.3-11.0)
[2025-04-15 11:44] LABS: CALCIUM, SERUM 9.0 mg/dL (8.5-10.1); CREATININE 0.8 mg/dL (0.6-1.3); SODIUM SERUM 135.0 mmol/L (136-145); UREA NITROGEN, BLOOD 11.0 mg/dL (7-18)
[2025-04-15 16:00] VITALS: BP 149/75; TEMP 98.2; O2SAT 97
[2025-04-15 19:35] VITALS: BP 167/88; TEMP 98.1; O2SAT 98
[2025-04-16 08:00] VITALS: BP 136/92; TEMP 97.8; O2SAT 95
[2025-04-16] MEDS: GLIMEPIRIDE 1 MG TABLET PO SCH (13:21)
[2025-04-16] MEDS: DIVALPROEX SODIUM 500 MG TABLET.DR PO SCH ×2 (13:22→20:58)
[2025-04-16 16:03] VITALS: BP 145/81; TEMP 98.2; O2SAT 97
[2025-04-16 20:08] VITALS: BP 140/87; TEMP 98.2; O2SAT 97
[2025-04-17 08:00] VITALS: BP 163/98; TEMP 98.6; O2SAT 97
[2025-04-17 12:06] LABS: LDL 91 mg/dL (0-99)
[2025-04-17 16:00] VITALS: BP 143/85; TEMP 98.7; O2SAT 97
[2025-04-17 20:02] VITALS: BP 132/81; TEMP 97.9; O2SAT 97
[2025-04-18 08:00] VITALS: BP 131/68; TEMP 98; O2SAT 98
[2025-04-18 08:06] VITALS: BP 131/68
== END 2025-04-18 16:15 | DRG 885 ==
LOC: ER 19:49 → GPS 23:48
PROVIDERS: ADMIT Acupuncturist; ATTEND Nurse Practitioner Acute Care
DX: F29 Unspecified psychosis not due to a substance or known physiological condition (principal); E11.65 Type 2 diabetes mellitus with hyperglycemia; G93.40 Encephalopathy, unspecified; K04.7 Periapical abscess without sinus; F32.9 Major depressive disorder, single episode, unspecified; F25.9 Schizoaffective disorder, unspecified; E66.9 Obesity, unspecified; I10 Essential (primary) hypertension; E87.1 Hypo-osmolality and hyponatremia; Z68.41 Body mass index [BMI] 40.0-44.9, adult; F39 Unspecified mood [affective] disorder; E78.5 Hyperlipidemia, unspecified; Z79.84 Long term (current) use of oral hypoglycemic drugs; Z20.822 Contact with and (suspected) exposure to COVID-19; F41.1 Generalized anxiety disorder; Z73.6 Limitation of activities due to disability; Z91.199 Patient's noncompliance with other medical treatment and regimen due to unspecified reason; Z79.899 Other long term (current) drug therapy
CPT/HCPCS: 36415; 80048-TC; 80061-TC; 80076-TC; 80164-TC; 81001; 82962-TC; 85025-TC; 87081-TC; J1815; J3490